=== PATIENT | male | born 1965 | race Caucasian/White ===

== ENCOUNTER 2023-09-03 22:52 | Inpatient (IN) | payer BC ==
[~2023-09-03] VITALS: Ht 182.9 cm; Wt 178.3 kg
[2023-09-04] VITALS (8 sets, daily range): BP systolic 134–155; BP diastolic 60–92; PULSE 46–89; RESP 15–24; TEMP 97.4–98.8; O2SAT 91–99
[2023-09-04] MEDS: ipratropium/albuterol 3ml nebule NEB ONE (00:11)
[2023-09-04] MEDS: hydrALAZINE 20mg/ml inj. IV ONE (00:11)
[2023-09-04] MEDS: methylPREDNISolone sod succ 125mg/2ml vial IV ONE (00:12)
[2023-09-04] MEDS: nitroGLYCERIN 1gm ointment UD TP ONE (00:12)
[2023-09-04 01:08] LABS: BASOPHILS # (AUTO) 0.1 X10'3 (0-0.2); BASOPHILS % (AUTO) 0.9 % (0-1); EOSINOPHILS # (AUTO) 0.2 X10'3 (0-0.9); EOSINOPHILS % (AUTO) 2.2 % (0-6); HEMATOCRIT 53.1 % (42.0-52.0); LYMPHOCYTES # (AUTO) 1.6 X10'3 (1.1-4.8); LYMPHOCYTES % (AUTO) 21.7 % (21-51); MEAN CORPUSCULAR HEMOGLOBIN 30.5 PG (27.0-31.0); MEAN CORPUSCULAR VOLUME 89.7 FL (78-98); MEAN PLATELET VOLUME 7.9 FL (7.4-10.4); MONOCYTES # (AUTO) 0.7 X10'3 (0-0.9); MONOCYTES % (AUTO) 8.6 % (2-12); NEUTROPHILS % (AUTO) 66.6 % (42-75); PLATELET COUNT 208 X10'3 (140-440); RED BLOOD COUNT 5.91 X10'6 (4.70-6.10); RED CELL DISTRIBUTION WIDTH 15.4 % (11.5-14.5); WHITE BLOOD COUNT 7.6 X10'3 (4.5-11.0)
[2023-09-04 01:28] LABS: ALBUMIN 3.8 G/DL (3.4-5.0); ANION GAP 9 (8-16); BLOOD UREA NITROGEN 15 MG/DL (7-18); BUN/CREATININE RATIO 16.9 (10.0-20.0); CALCIUM 8.4 MG/DL (8.5-10.1); CHLORIDE 102 MMOL/L (99-107); CREATININE 0.89 MG/DL (0.60-1.10); GLUCOSE 110 MG/DL (70-104); MAGNESIUM 1.9 MG/DL (1.5-2.4); POTASSIUM 3.9 MMOL/L (3.5-5.1); PRO BRAIN NATRIURETIC PEPTIDE 617 PG/ML (0-125); SODIUM 140 MMOL/L (135-145); TOTAL CARBON DIOXIDE 29.3 MMOL/L (24-32); eCRCL 98 ML/MIN; eGFR 87 ML/MIN
[2023-09-04 02:04] LABS: INR 3.2 INR; PROTHROMBIN TIME 31.6 SECONDS (9.0-12.0)
[2023-09-04] MEDS ORDERED: potassium Cl 40MEQ/1/2NS 520ml 520 ML IV PRN (03:50)
[2023-09-04] MEDS ORDERED: magnesium 2GM in 50ml NS 50 ML IV PRN (03:50)
[2023-09-04] MEDS ORDERED: magnesium hydroxide 30ml (MOM) UD suspension PO PRN (03:50)
[2023-09-04] MEDS ORDERED: ondansetron/PF 4mg/2ml inj IV PRN (03:50)
[2023-09-04] MEDS ORDERED: potassium Cl 20 mEq SR tablet PO PRN ×2 (03:50)
[2023-09-04] MEDS ORDERED: mag hydrox/Alum hydrox/simeth 30ml oral suspension PO PRN (03:50)
[2023-09-04] MEDS ORDERED: magnesium Cl slow-release 64mg tablet PO PRN (03:50)
[2023-09-04] MEDS ORDERED: magnesium 4gm in 100ml NS 100 ML IV PRN (03:50)
[2023-09-04] MEDS ORDERED: FURO20TA4 PO (07:20)
[2023-09-04 07:58] LABS: APTT 41 SECONDS (22-32)
[2023-09-04] MEDS: K and/or MAG REPLACEMENT MC SCH (08:00)
[2023-09-04] MEDS ORDERED: WARF-65 PO (08:17)
[2023-09-04] MEDS ORDERED: METF-1203 PO (08:17)
[2023-09-04] MEDS ORDERED: ATOR40TA72 PO (08:17)
[2023-09-04] MEDS ORDERED: WARF10TA45 PO (08:17)
[2023-09-04] MEDS ORDERED: TAMSULOSIN (08:17)
[2023-09-04] MEDS ORDERED: LEVO50TA8 PO (08:17)
[2023-09-04] MEDS ORDERED: POTA-206 (08:17)
[2023-09-04] MEDS ORDERED: TADA5TAB13 PO (08:17)
[2023-09-04] MEDS ORDERED: METO-395 PO (08:17)
[2023-09-04] MEDS: furosemide 10 MG/1 ML 10ml inj IV SCH (10:17)
[2023-09-04] MEDS: acetaminophen 325mg tablet PO PRN (10:18)
[2023-09-04] MEDS ORDERED: ASPI-1264 PO (11:00)
[2023-09-05 02:00] VITALS: BP 152/80; PULSE 78; RESP 18; TEMP 98.3; O2SAT 95
[2023-09-05 06:00] VITALS: BP 138/83; PULSE 57; RESP 18; TEMP 97.9; O2SAT 97
[2023-09-05 07:23] LABS: INR 2.3 INR; PROTHROMBIN TIME 23.3 SECONDS (9.0-12.0)
[2023-09-05 07:32] LABS: BASOPHILS % (AUTO) 0.2 % (0-1); EOSINOPHILS # (AUTO) 0.1 X10'3 (0-0.9); EOSINOPHILS % (AUTO) 0.6 % (0-6); HEMATOCRIT 55.6 % (42.0-52.0); LYMPHOCYTES # (AUTO) 1.3 X10'3 (1.1-4.8); MEAN CORPUSCULAR HEMOGLOBIN 30.1 PG (27.0-31.0); MEAN CORPUSCULAR HGB CONC 33.3 g/dL (33.0-36.5); MEAN CORPUSCULAR VOLUME 90.5 FL (78-98); MONOCYTES # (AUTO) 0.9 X10'3 (0-0.9); MONOCYTES % (AUTO) 7.5 % (2-12); NEUTROPHILS # (AUTO) 9.9 X10'3 (1.8-7.7); NEUTROPHILS % (AUTO) 80.7 % (42-75); PLATELET COUNT 252 X10'3 (140-440); RED BLOOD COUNT 6.14 X10'6 (4.70-6.10); RED CELL DISTRIBUTION WIDTH 15.5 % (11.5-14.5); WHITE BLOOD COUNT 12.2 X10'3 (4.5-11.0)
[2023-09-05 07:42] LABS: HEMOGLOBIN 18.5 g/dl (14.0-17.9)
[2023-09-05 07:43] LABS: ALANINE AMINOTRANSFERASE 35 U/L (12-78); ALBUMIN 3.9 G/DL (3.4-5.0); ALBUMIN/GLOBULIN RATIO 0.8 (1.1-1.5); ALKALINE PHOSPHATASE 85 IU/L (46-116); ANION GAP 8 (8-16); BILIRUBIN,TOTAL 1.1 MG/DL (0.1-1.0); BLOOD UREA NITROGEN 27 MG/DL (7-18); BUN/CREATININE RATIO 28.7 (10.0-20.0); CALCIUM 8.5 MG/DL (8.5-10.1); CHLORIDE 102 MMOL/L (99-107); CREATININE 0.94 MG/DL (0.60-1.10); GLUCOSE 134 MG/DL (70-104); SODIUM 139 MMOL/L (135-145); TOTAL PROTEIN 8.7 G/DL (6.4-8.2); eCRCL 93 ML/MIN; eGFR 82 ML/MIN
[2023-09-05 07:44] LABS: ASPARTATE AMINO TRANSFERASE 38 U/L (10-37); POTASSIUM 4.3 MMOL/L (3.5-5.1)
[2023-09-05 11:00] VITALS: BP 125/69; PULSE 76; RESP 16; TEMP 97.7; O2SAT 93
[2023-09-05] MEDS ORDERED: warfarin 7.5mg tablet PO ONE (21:00)
== END 2023-09-05 15:40 | disposition home or self-care (01) | DRG 291 ==
LOC: ER 22:54 → ED HOLD 09-04 03:56 → PCU 3S 09-04 05:45
PROVIDERS: ADMIT Orthopaedic Surgery Orthopaedic Surgery of the Spine; ATTEND Internal Medicine
DX: I11.0 Hypertensive heart disease with heart failure (principal); J96.01 Acute respiratory failure with hypoxia; Z68.43 Body mass index [BMI] 50.0-59.9, adult; I50.9 Heart failure, unspecified; I48.91 Unspecified atrial fibrillation; D75.1 Secondary polycythemia; E11.9 Type 2 diabetes mellitus without complications; E66.01 Morbid (severe) obesity due to excess calories; I16.0 Hypertensive urgency; T44.7X5A Adverse effect of beta-adrenoreceptor antagonists, initial encounter; Y92.89 Other specified places as the place of occurrence of the external cause; Z79.84 Long term (current) use of oral hypoglycemic drugs; E78.5 Hyperlipidemia, unspecified
CPT/HCPCS: 36415; 71045; 80048; 80053; 83605; 83735; 83880; 84484; 85025; 85379; 85610; 85730; 87040; 87081; 93005; 93306; 94640; 94760; 96374; 96375; 99291; A6213; G0378; J0360; J1940; J2930

== ENCOUNTER 2024-11-03 17:41 | Inpatient (IN) | payer BC ==
[~2024-11-03] VITALS: Ht 182.9 cm; Wt 185.0 kg
[~2024-11-03 17:41] MED LIST: ATOR40TA72 PO; FURO20TA4 PO; LEVO50TA8 PO; METF-1203 PO; POTA-206; TADA5TAB14 PO; WARF-65 PO; WARF10TA45 PO
[2024-11-03 17:43] VITALS: PULSE 80; RESP 33; O2SAT 98
--- NOTE | 2024-11-03 17:49 | ELECTROCARDIOGRAPH REPORT ---
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 Junior Brown Measurements Intervals [place] Rate: 70 P: 0 MA: 75 QRS: 85 QRSD: 108 T: 64 QT: 341 QTc: 368 Interpretive Statements A-V dual-paced complexes w/ some inhibition No further analysis attempted due to paced rhythm Electronically Signed On 11-03-2024 18:39:[address] Junior Brown Please click the below link to view image of tracing.
[2024-11-03 17:57] LABS: ABG BASE EXCESS 0.8 mmol/L (-2.0-3.0); ABG HCO3 27.6 mmol/L (21.0-28.0); ABG OXYGEN SATURATION 98.6 % (94.0-98.0); ABG PCO2 (T) 56.5 mmHg (35.0-48.0); ABG PH (T) 7.317 (7.350-7.450); ABG PO2 (T) 157.5 mmHg (83.0-108.0); ALLEN'S TEST POSITIVE; FCOHb 0.5 % (0.5-1.5); FHHb 1.4 % (0.0-5.0); FMetHb 0.3 % (0.0-1.5); FO2Hb 97.8 % (94.0-98.0); MODE BIPAP; PATIENT TEMPERATURE 39.3; TOTAL HEMOGLOBIN 17.8 G/dl (13.5-17.5)
--- NOTE | 2024-11-03 18:03 | Physician Documentation ---
History of Present Illness ~ Stated Complaint: SOB Time Seen by MD: 17:47 OK to notify your PCP?: Yes Mode of Arrival: EMS HPI 59-YEAR-OLD MALE PATIENT WAS BROUGHT TO THE EMERGENCY ROOM BY AMBULANCE FROM [place] BECAUSE OF SHORTNESS A BREATH. HE WAS DISCHARGED FROM [facility] YESTERDAY AND HE COULD NOT BREATHE SO HE CALLED 911. HE WAS BROUGHT TO THE EMERGENCY ROOM STRAIGHT FROM THERE. ON THE WAY HE WAS GIVEN 2 MG OF ATIVAN INTRAVENOUSLY BECAUSE HE WAS NOT TOLERATING THE MASK. HE HAS HISTORY OF CHF, STATUS POST BIVENTRICULAR PACEMAKER, ATRIAL FIBRILLATION, KRISTYN (OBSTRUCTIVE SLEEP APNEA), DIABETES MELLITUS AND HYPERTENSION. WE DO NOT KNOW THE REASON HE WAS ADMITTED TO [facility]. 194: Family report patient started not feeling well last night, and worsened today. During admission to [facility] patient was reportedly given azithromycin and Rocephin. He also had a CT of his chest during that visit which was "okay." Apparently COVID-19 and influenza tests were negative. 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 Medication Reconciliation Allergies: Coded Allergies: No Known Allergies (Unverified , 09/04/23) Scheduled Atorvastatin Calcium (Atorvastatin Calcium), 1 TAB PO HS, (Reported) Furosemide (Furosemide), 1 TAB PO QAM, (Reported) Levothyroxine Sodium (Levothyroxine Sodium), 1 TAB PO DAILY, (Reported) Tadalafil (Tadalafil), 1 TAB PO DAILY, (Reported) Warfarin Sodium (Warfarin Sodium), 1 TAB PO DAILY, (Reported) Warfarin Sodium (Warfarin Sodium), 1 TAB PO DAILY, (Reported) Miscellaneous Medications Metformin HCl (Metformin HCl), 1 TAB PO, (Reported) Potassium Chloride (K-Dur), (Reported) Past Medical History Past Medical History: Atrial Fibrillation, Congestive Heart Failure, High Cholesterol, Hypertension, Sleep Apnea, Diabetes, Cellulitis Past Surgical History: pacemaker Smoking Status: Never smoker (chews tobacco) Alcohol Use: Sober Drug Use: none Lives In: Home Review of Systems All Other Systems at this time: Reviewed and Negative ROS STATED ABOVE IN THE HPI, OTHERWISE ALL SYSTEMS ARE REVIEWED AND NEGATIVE. Physical Exam Vital Signs: RN Vital Signs have been reviewed: Yes, Heart Rate: 80, Respiratory Rate: 33, Pulse Oximetry: 98 Physical Exam REVIEWED VITAL SIGNS AND THEY ARE WELL WITHIN NORMAL RANGE BUT PATIENT IS NOT VERBALLY RESPONSIVE (PROBABLY FROM THE ATIVAN 2 MG INTRAVENOUSLY GIVEN BY THE EMS.) CONST: THE PATIENT IS MORE OR LESS OBTUNDED FROM ATIVAN HEAD: ATRAUMATIC EYES: NORMAL CONJUNCTIVA ENT: NORMAL EXTERNAL EARS, NOSE AND MOUTH. MOIST MUCOUS MEMBRANES NECK: FULL RANGE OF MOTION. NO MENINGISMUS RESP: CLEAR TO AUSCULTATION BILATERALLY. SLIGHTLY DIMINISHED BILATERALLY. MODERATELY INCREASED WORK OF BREATHING . CARDIO: REGULAR RATE AND RHYTHM, NO MURMURS. SKIN WELL PERFUSED ABD: SOFT, NON-TENDER, NON-DISTENDED. NORMAL BOWEL SOUNDS. NO REBOUND OR GUARDING SKIN: NO PETECHIAE OR RASHES. WARM AND DRY BACK: NO MIDLINE OR FLANK TENDERNESS EXT: NO CYANOSIS, OR EDEMA NEURO: AWAKE AND ALERT PSYCH: NORMAL MOOD AND AFFECT Progress Progress Note 1924: Case discussed with teleintensivist, who believes patient is appropriate for admission to the hospitalist. 1944: Hospitalist paged. 2004: Case discussed with Dr. Frias, internal medicine resident, who agrees to evaluate for admission. Results/Orders Results/Orders Orders - BLAISE HANKINS MD Abg (Arterial Blood Gas) (11/03/24 ) Culture Blood (11/03/24 17:42) Chest,Single View (11/03/24 17:55) Monitor (11/03/24 17:42) Saline Lock (11/03/24 17:42) Oxygen (11/03/24 17:42) Electrocardiogram (11/03/24 17:42) Completed Orders - BLAISE HANKINS MD Cbc/Diff (11/03/24 17:42) Chest,Single View (11/03/24 17:55) Procalcitonin (11/03/24 17:42) BMP (11/03/24 17:42) Lacticsepsis (11/03/24 17:42) PBNP (11/03/24 17:42) Electrocardiogram (11/03/24 17:42) Hs Troponin I W Calculations (11/03/24 17:42) Hs Troponin I W Calculations (11/03/24 19:42) Hs Troponin I W Calculations (11/03/24 20:42) Ceftriaxone 2gm/D5w 50ml Bag (Rocephin 2 (11/03/24 17:55) Acetaminophen 1,000mg/100ml Iv (Ofirmev (11/03/24 17:55) Magnesium Sulf-Water 2g/50ml (Magnesium (11/03/24 17:55) Ua W/Microscopic, Cult If Ind (11/03/24 19:00) Hgb A1c (11/03/24 17:50) Vital Signs 11/03/24 11/03/24 11/03/24 11/03/24 17:41 17:43 18:10 18:13 Temp 102.8 Pulse 83 80 77 Resp 24 35 32 35 33 B/P (MAP) 130/93 126/62 (83) Pulse Ox 97 98 98 FiO2 100 100 11/03/24 11/03/24 11/03/24 11/03/24 18:30 18:37 18:37 18:56 Pulse 88 Resp 32 35 B/P (MAP) 93/65 (74) Pulse Ox 99 98 98 O2 Delivery BiPAP+ FiO2 100 90 11/03/24 11/03/24 11/03/24 19:00 19:05 20:04 Pulse 83 81 Resp 29 22 B/P (MAP) 119/71 (87) 113/66 (82) Pulse Ox 98 98 98 FiO2 80 70 Laboratory Tests Test 11/03/24 17:50 11/03/24 17:54 11/03/24 19:00 11/03/24 19:50 White Blood Count 10.3 Red Blood Count 5.71 Hemoglobin 16.8 Hematocrit 50.1 Mean Corpuscular Volume 87.8 Mean Corpuscular Hemoglobin 29.4 Mean Corpuscular Hemoglobin Concent 33.5 Red Cell Distribution Width 15.3 H Platelet Count 140 Mean Platelet Volume 7.5 Neutrophils (%) (Auto) 91.6 H Lymphocytes (%) (Auto) 2.8 L Monocytes (%) (Auto) 5.4 Eosinophils (%) (Auto) 0 Basophils (%) (Auto) 0.2 Neutrophils # (Auto) 9.4 H Lymphocytes # (Auto) 0.3 L Monocytes # (Auto) 0.6 Eosinophils # (Auto) 0.0 Basophils # (Auto) 0.0 CBC Comment Sodium Level 132 L Potassium Level 4.9 Chloride Level 101 Carbon Dioxide Level 26.2 Anion Gap 5 L Blood Urea Nitrogen 26 H Creatinine 1.20 H Estimated GFR/1.73 m2 62 BUN/Creatinine Ratio 21.7 H Glucose Level 160 H Hemoglobin A1c 7.5 H Lactic Acid Level 1.8 1.3 Calcium Level 8.0 L Troponin I High Sensitivity 48 54 Pro-B-Type Natriuretic Peptide 1545 H Albumin 3.1 L Procalcitonin 9.07 H Chemistry Comments Blood Gas Specimen Type Arterial Blood Gas Puncture Site Rr O2 Saturation 98.6 H Arterial Blood pH (Temp corrected) 7.317 L Arterial Blood pCO2 (Temp correct) 56.5 H Arterial Blood pO2 (Temp corrected) 157.5 H Arterial Blood PO2/FiO2 Ratio 1.43 Arterial Blood HCO3 27.6 Arterial Blood Base Excess 0.8 Arterial Blood Oxyhemoglobin 97.8 Arterial Blood Carboxyhemoglobin 0.5 Arterial Blood Methemoglobin 0.3 Arterial Blood Deoxyhemoglobin 1.4 Lucius Test Positive Blood Gas Hemoglobin 17.8 H Blood Gas Temperature 39.3 Blood Gas Modality Bipap FiO2 100.0 Urine Specimen Description Other Urine Color Yellow Urine Clarity Cloudy Urine pH 5.5 Urine Specific [place] 1.020 Urine Protein 30 H Urine Glucose (UA) Negative Urine Ketones Negative Urine Occult Blood Large H Urine Nitrite Negative Urine Bilirubin Negative Urine Urobilinogen 0.2 Urine Leukocyte Esterase Negative Urine RBC 50-100 Urine WBC None seen Urine Squamous Epithelial Cells Few Urine Bacteria Few Urine Mucus Few Urine Culture Indicated Not ind Volume Urine Centrifuged 10 ml Urine Comment Prothrombin Time 19.3 H INR International Normalized Ratio 2.0 Activated Partial Thromboplast Time 38 H Coagulation Comments Troponin I High Sens Percent Delta 12 Troponin I Hi Sens Absolute Change 6 Microbiology Date/Time Source Procedure Growth Status 11/03/24 18:08 Blood Hand Right Blood Culture - Preliminary NEGATIVE (LESS THAN 24 HOURS) Resulted EKG/XRAY/CT/US/VASC/MRI EKG : Additional Comment Test Date: 2024-11-03 Test Time: 17:46:13 Pat Name: RENUKA DAVILA Department: EMERGENCY ROOM Room: 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 Junior Brown Measurements Intervals [place] Rate: 70 P: 0 [place]: 75 QRS: 85 QRSD: 108 T: 64 QT: 341 QTc: 368 Interpretive Statements A-V dual-paced complexes w/ some inhibition No further analysis attempted due to paced rhythm Electronically Signed On 11-03-2024 18:39:[address] Junior Brown (interpreted by me) Chest X-Ray : Interpreted By: radiologist Views: 1 VIEW Additional Comments EXAM: DI CHEST,SINGLE VIEW CLINICAL HISTORY: SEPSIS WORKUP TECHNIQUE: Single AP view of the chest WID: COMPARISON: DI CHEST,SINGLE VIEW on DOS: 09/04/23 FINDINGS: Lines and tubes: There is a left-sided dual lead pacemaker with lead tips projecting over the right atrium in the right ventricle. Chest: Cardiomegaly and mild pulmonary vascular congestion. Small bilateral pleural effusions and mixed bibasilar opacities. No pneumothorax. The osseous structures are grossly intact. Multilevel thoracic spondylosis. IMPRESSION: 1. Mild cardiomegaly and mild pulmonary vascular congestion. 2. Small bilateral pleural effusions and mild bibasilar mixed opacities likely atelectasis although pneumonia could contribute to this appearance. Reviewed by Dr. Brown. Medical Decision Making Findings PATIENT CAME TO THE EMERGENCY ROOM AND HE IS MORBIDLY OBESE AND WE HAVE TO POSITION HIM WITH DIFFICULTIES AND PUT HIM ON BIPAP AND HIT OXYGENATION IMPROVED. LABS ORDERED AND AFTER THE BLOOD CULTURE HE WAS GIVEN 2 G OF ROCEPHIN INTRAVENOUSLY TOGETHER WITH MAGNESIUM 2 G INTRAVENOUSLY. ABG WAS DONE AND FIO2 100%: PH 7.317/PO2 157.5/PCO2 56.5/BICARB 27.6/O2 SAT 98.6%. LAB PENDING AND HIS EKG DONE AT 17:46 HOURS SHOWS ABG WERE PACED COMPLEX WITH SOME INHIBITION. HEART RATE IS 70. Patient needs to be admitted to the hospital for acute hypoxic and hypercarbic respiratory failure most probably secondary to CHF and COPD. Critical Care Time: [55] minutes Treatments/Evaluations: Close monitoring and treatment of unstable vital signs, cardiorespiratory, and neurologic status, while maintaining tight balance of fluid, respiratory, and cardiac interventions. This time includes discussing the case with the patient and the patient's family. This time does not include all procedures stated elsewhere in this record. This time also includes reviewing old records, labs and radiological studies. This time includes examining and re- examining the patient. Additionally, this time also includes arranging care with admitting and consulting physicians. DISCLAIMER Inadvertent spelling and grammatical errors,inadvertent low pressure boiler operator errors,syntax errors, grammatical errors, and spelling errors are likely due to EMR/dictation software use and do not reflect on the overall quality of patient care. Note that the electronic time recorded on this note does not necessarily reflect the actual time of the patient encounter. Departure Time of Disposition: 19:45 Disposition: 09 ADMITTED INPATIENT Admitted to Inpatient Unit: yes, to hospitalist Impression: Primary Impression: Acute hypoxic respiratory failure Additional Impressions: CHF exacerbation Qualified Codes: I50.9 - Heart failure, unspecified Acute pneumonitis JEFF (acute kidney injury) Condition: Guarded Referrals: NO PRIMARY CARE PROVIDER (PCP) Critical Care Note Total Time (mins): 60 Critical Care Note Critical Care Time: 60 minutes Treatments/Evaluations: Close monitoring and treatment of unstable vital signs, cardiorespiratory, and neurologic status, while maintaining tight balance of fluid, respiratory, and cardiac interventions. This time includes discussing the case with the patient and the patient's family. This time does not include all procedures stated elsewhere in this record. This time also includes reviewing old records, labs and radiological studies. This time includes examining and re- examining the patient. Additionally, this time also includes arranging care with admitting and consulting physicians. Signature Scribe Signature: Scribed for Junior Brown MD by Ramona Sam . 11/03/24 19:41 Attestation: BLAISE DAO MD November 03, 2024 18:03 RAMONA RG November 03, 2024 19:47
--- NOTE | 2024-11-03 18:12 | RADIOLOGY REPORT ---
EXAM: DI CHEST,SINGLE VIEW CLINICAL HISTORY: SEPSIS WORKUP TECHNIQUE: Single AP view of the chest WID: COMPARISON: DI CHEST,SINGLE VIEW on DOS: 09/04/23 FINDINGS: Lines and tubes: There is a left-sided dual lead pacemaker with lead tips projecting over the right a trium in the right ventricle. Chest: Cardiomegaly and mild pulmonary vascular congestion. Small bilateral pleural effusions and mixed bibasilar opacities. No pneumothorax. The osseous structures are grossly intact. Multilevel thoracic spondylosis. IMPRESSION: 1. Mild cardiomegaly and mild pulmonary vascular congestion. 2. Small bilateral pleural effusions and mild bibasilar mixed opacities likely atelectasis although p neumonia could contribute to this appearance.
[2024-11-03 18:18] LABS: BASOPHILS % (AUTO) 0.2 % (0-1); EOSINOPHILS % (AUTO) 0 % (0-6); HEMATOCRIT 50.1 % (42.0-52.0); HEMOGLOBIN 16.8 g/dl (14.0-17.9); LYMPHOCYTES # (AUTO) 0.3 X10'3 (1.1-4.8); LYMPHOCYTES % (AUTO) 2.8 % (21-51); MEAN CORPUSCULAR HEMOGLOBIN 29.4 PG (27.0-31.0); MEAN CORPUSCULAR HGB CONC 33.5 g/dL (33.0-36.5); MEAN CORPUSCULAR VOLUME 87.8 FL (78-98); MEAN PLATELET VOLUME 7.5 FL (7.4-10.4); MONOCYTES # (AUTO) 0.6 X10'3 (0-0.9); MONOCYTES % (AUTO) 5.4 % (2-12); NEUTROPHILS # (AUTO) 9.4 X10'3 (1.8-7.7); NEUTROPHILS % (AUTO) 91.6 % (42-75); PLATELET COUNT 140 X10'3 (140-440); RED BLOOD COUNT 5.71 X10'6 (4.70-6.10); RED CELL DISTRIBUTION WIDTH 15.3 % (11.5-14.5); WHITE BLOOD COUNT 10.3 X10'3 (4.5-11.0)
[2024-11-03] MEDS: CefTRIAXone 2gm/D5W 50ml BAG 50 ML IV ONE (18:34)
[2024-11-03] MEDS: acetaminophen 1,000mg/100ml IV 100 ML IV ONE (18:35)
[2024-11-03 18:49] LABS: ALBUMIN 3.1 G/DL (3.4-5.0); ANION GAP 5 (8-16); BLOOD UREA NITROGEN 26 MG/DL (7-18); BUN/CREATININE RATIO 21.7 (10.0-20.0); CHLORIDE 101 MMOL/L (99-107); GLUCOSE 160 MG/DL (70-104); POTASSIUM 4.9 MMOL/L (3.5-5.1); PRO BRAIN NATRIURETIC PEPTIDE 1545 PG/ML (0-125); SODIUM 132 MMOL/L (135-145); TOTAL CARBON DIOXIDE 26.2 MMOL/L (24-32); eCRCL 72 ML/MIN; eGFR 62 ML/MIN
[2024-11-03 18:56] VITALS: O2SAT 98
[2024-11-03 19:00] VITALS: O2SAT 98
[2024-11-03] MEDS: magnesium sulf-water 2g/50mL 50 ML IV ONE (19:04)
[2024-11-03 19:28] LABS: BILIRUBIN,URINE NEGATIVE (Neg); CLARITY,URINE CLOUDY (Clear); COLOR,URINE YELLOW (Yellow); GLUCOSE, URINE NEGATIVE (Neg); KETONES,URINE NEGATIVE (Neg); LEUKOCYTE ESTERASE ,URINE NEGATIVE (Neg); NITRITES, URINE NEGATIVE (Neg); OCCULT BLOOD,URINE LARGE (Neg); PH,URINE 5.5 (4.8-8.0); PROTEIN,URINE 30 mg/dl (Neg); UROBILINOGEN,URINE 0.2 E.U/dL (0.2-1.0)
[2024-11-03 19:33] LABS: UA COLLECTION TYPE OTHER
[2024-11-03 19:34] LABS: WBC,URINE NONE SEEN /HPF (0-4)
[2024-11-03 19:35] LABS: BACTERIA,URINE FEW /HPF (Neg); MUCUS STRANDS FEW /LPF (Neg); RBC,URINE 50-100 /HPF (0-2); SQUAMOUS EPITHELIAL CELL,UR FEW /LPF (FEW)
[2024-11-03] MEDS ORDERED: potassium Cl 40MEQ/1/2NS 520ml 520 ML IV PRN (20:05)
[2024-11-03] MEDS ORDERED: mag hydrox/Alum hydrox/simeth 30ml oral suspension PO PRN (20:05)
[2024-11-03] MEDS ORDERED: acetaminophen 325mg tablet PO PRN (20:05)
[2024-11-03] MEDS ORDERED: magnesium hydroxide 30ml (MOM) UD suspension PO PRN (20:05)
[2024-11-03] MEDS ORDERED: magnesium sulf-water 4G/100mL 100 ML IV PRN (20:05)
[2024-11-03] MEDS ORDERED: magnesium Cl slow-release 64mg tablet PO PRN (20:05)
[2024-11-03] MEDS ORDERED: potassium Cl 20 mEq SR tablet PO PRN ×2 (20:05)
[2024-11-03] MEDS ORDERED: ondansetron/PF 4mg/2ml inj IV PRN (20:05)
[2024-11-03] MEDS ORDERED: magnesium sulf-water 2g/50mL 50 ML IV PRN (20:05)
[2024-11-03] MEDS ORDERED: morphine 2 MG/ML inj. syringe IV PRN ×2 (20:05)
[2024-11-03 20:09] LABS: APTT 38 SECONDS (22-32); PROTHROMBIN TIME 19.3 SECONDS (9.0-12.0)
[2024-11-03] MEDS: methylPREDNISolone sod succ/PF 40mg inj. IV ONE (20:57)
[2024-11-03] MEDS: furosemide 10 MG/1 ML 10ml inj IV ONE (20:57)
[2024-11-03] MEDS: azithromycin/NS 500mg/250ml 250 ML IV ONE (20:58)
--- NOTE | 2024-11-03 22:15 | HISTORY AND PHYSICAL-Residence ---
History & Physical Providers to CC Resident Creating Document: CHIVO ROJAS CC: CIRILO PALOMO MD ~ History of Present Illness Reason for Admit\Complaint: Shortness of breath History of Present Illness Patient is a 59-year-old male with past medical history of CHF, atrial fibrillation, hemochromatosis, type 2 diabetes, hypertension, hypothyroidism and hyperlipidemia who came to the ED transferred from [place] due to shortness of breath. Patient was difficult to arouse and not answering questions, medical history obtained from . She reports that for 1 week patient has been experiencing increasing shortness of breath, worse at night, with the orthopnea and PND, as well as generalized weakness and malaise. She states that yesterday he presented with nasal congestion, increasing confusion, worsening shortness of breath with decreased oxygen saturation which was measured at home at 87%, fever and chills. Patient was taken to [facility] where after giving IV Lasix and IV antibiotics patient was sent to our facility for further management. Of note, family reports that patient has been at [facility] twice in the last month due to CHF exacerbation symptoms. Allergies: Coded Allergies: No Known Allergies (Unverified , 09/04/23) Home Medications Home Medications Active Reported K-Dur (Potassium Chloride) 10 Meq Tab.prt.sr Metformin HCl 500 Mg Tablet 1 Tab PO Atorvastatin Calcium 40 Mg Tablet 1 Tab PO HS Warfarin Sodium 10 Mg Tablet 1 Tab PO DAILY Warfarin Sodium 2 Mg Tablet 1 Tab PO DAILY Levothyroxine Sodium 50 Mcg Tablet 1 Tab PO DAILY Tadalafil 5 Mg Tablet 1 Tab PO DAILY Furosemide 20 Mg Tablet 1 Tab PO QAM Past Medical History Past Medical History CHF Atrial fibrillation Hemochromatosis Type 2 diabetes Hypertension Hypothyroidism Hyperlipidemia Past Surgical History Surgical History Comment Pacemaker 1 year ago Family History Family History: FH: type 2 diabetes MOTHER Past Social History Smoking: Chew (Tobacco) Alcohol Use: Sober Drug Use: None Lives with: Spouse Lives In: Home Occupation: employed ROS ROS All systems were reviewed except for pertinent positives mentioned in HPI Exam Vitals: Vital Signs Date Time Temp Pulse Resp B/P (MAP) Pulse Ox O2 Delivery O2 Flow Rate FiO2 11/03/24 21:00 69 22 136/59 (84) 97 50 11/03/24 17:41 102.8 General: General: Morbidly obese male, drowsy, open eyes and falls back asleep, not following commands HEENT: BiPAP in place. No pallor present, no icterus, moist mucous membranes Neck: No masses and tenderness Resp: Bilateral basal crackles and faint wheezes. No rhonchi Heart: Irregular Rate and rhythm, variable S1 and S2 without murmur, rub or gallop Abdomen: Soft and non tender no organomegaly, no guarding and rigidity, bowel sounds present Neuro: Drowsy, unable to follow commands Extremities: No cyanosis,clubbing or edema Skin: Warm and Dry. No lesions Diagnostic Data Last Recorded Lab Results: 11/03/24 17511/03/24 175 Diagnostic Data: Laboratory Tests Test 11/03/24 19:50 Prothrombin Time 19.3 SECONDS (9.0-12.0) H INR International Normalized Ratio 2.0 INR Activated Partial Thromboplast Time 38 SECONDS (22-32) H Coagulation Comments Advance Care Planning Advanced Care plannin - 30 Minutes Additional Plan atient is a 59-year-old male with past medical history of CHF, atrial fibrillation, hemochromatosis, type 2 diabetes, hypertension, hypothyroidism and hyperlipidemia who came to the ED transferred from [place] due to shortness of breath. Admitted for evaluation and management of acute hypoxic respiratory failure, sepsis secondary to community acquired pneumonia and CHF exacerbation. Acute hypoxic respiratory failure Sepsis 2/2 community-acquired pneumonia Acute on Chronic HFpEF Respiratory acidosis Small bilateral pleural effusions JEFF, likely prerenal secondary to vasomotor nephropathy Patient is currently on BiPAP with FiO2 of 70%, saturating 96% Blood pressure stable ABG shows: PH 7.317, pCO2 56.5, PO2 157.5, HC03 27.6 WBC 10.3, neutrophilia of 91.6%, Procalcitonin: 9, Lactic acid 1.8, awaiting repeat ProBNP 1545 Creatinine 1.2 Chest x-ray shows: Mild cardiomegaly and mild pulmonary vascular congestion. Small bilateral pleural effusions and mild bibasilar mixed opacities likely atelectasis although pneumonia could contribute to this appearance. Started on Rocephin IV 2 g daily and azithromycin IV daily Single dose of Lasix 60 mg IV given. Will do single dose for now in view of sepsis, but also we will avoid IV fluids at this time in view of CHF Strict I's and O's Per family patient is currently not on TARAH, Arb or ARNI Recently started on amlodipine. Pending med rec Pending echocardiogram Will consider upgrade to ICU if patient deteriorates Patient discussed in detail with Dr. Edouard Palomo Atrial fibrillation, rate controlled Hypertension Hyperlipidemia History of Hemochromatosis Obstructive sleep apnea On Coumadin. INR is 2.0 Hb: 16.8 Continue atorvastatin. Pending med rec Iron studies ordered Patient not on CPAP at home, family is working on getting him one Type 2 diabetes According to family last A1c was below 7 We will obtain new A1c Hold metformin Start Lantus 15 units, lispro 3 units, low-dose supplemental Hypothyroidism Continue levothyroxine. Pending med rec Code Status: Full code DVT prophylaxis: Warfarin Nutrition: Carb controlled PT: Ordered Prognosis: Guarded Disposition: Admit to PCU with tele monitoring. Continue medical management Chivo Frias MD Internal Medicine Resident PGY-1 Date of Service: November 03, 2024 Billing Provider: CHIVO ROJAS LEONARDO LUIS November 03, 2024 22:15
[2024-11-03] MEDS ORDERED: glucagon, human recombinant 1mg kit SUBCUT PRN (22:55)
[2024-11-03] MEDS ORDERED: dextrose 50%-water 50ml dispensing syringe IV PRN ×2 (22:55)
[2024-11-03] MEDS ORDERED: DEXTROSE 15 GM of carb/4 tabs (each vial/BOTTLE has 4 tablets) PO PRN ×2 (22:55)
[2024-11-03 23:09] VITALS: PULSE 73; RESP 23; O2SAT 94
[2024-11-03 23:25] LABS: HEMOGLOBIN A1C 7.5 % (4.5-6.2)
[2024-11-04] VITALS (13 sets, daily range): BP systolic 113–139; BP diastolic 63–92; PULSE 57–86; RESP 13–24; TEMP 97–99.3; O2SAT 90–95
[2024-11-04 05:42] LABS: BASOPHILS % (AUTO) 0.1 % (0-1); EOSINOPHILS % (AUTO) 0 % (0-6); HEMATOCRIT 48.3 % (42.0-52.0); HEMOGLOBIN 16.3 g/dl (14.0-17.9); LYMPHOCYTES # (AUTO) 0.5 X10'3 (1.1-4.8); LYMPHOCYTES % (AUTO) 5.3 % (21-51); MEAN CORPUSCULAR HEMOGLOBIN 29.6 PG (27.0-31.0); MEAN CORPUSCULAR HGB CONC 33.7 g/dL (33.0-36.5); MEAN CORPUSCULAR VOLUME 87.9 FL (78-98); MEAN PLATELET VOLUME 7.7 FL (7.4-10.4); MONOCYTES # (AUTO) 0.1 X10'3 (0-0.9); MONOCYTES % (AUTO) 1.7 % (2-12); NEUTROPHILS # (AUTO) 8.1 X10'3 (1.8-7.7); NEUTROPHILS % (AUTO) 92.9 % (42-75); PLATELET COUNT 140 X10'3 (140-440); RED CELL DISTRIBUTION WIDTH 15.2 % (11.5-14.5); WHITE BLOOD COUNT 8.7 X10'3 (4.5-11.0)
[2024-11-04 06:07] LABS: ALANINE AMINOTRANSFERASE 43 U/L (12-78); ALBUMIN 3.1 G/DL (3.4-5.0); ALBUMIN/GLOBULIN RATIO 0.7 (1.1-1.5); ALKALINE PHOSPHATASE 69 IU/L (46-116); ANION GAP 7 (8-16); ASPARTATE AMINO TRANSFERASE 35 U/L (10-37); BILIRUBIN,TOTAL 0.9 MG/DL (0.1-1.0); BLOOD UREA NITROGEN 30 MG/DL (7-18); BUN/CREATININE RATIO 27.3 (10.0-20.0); CALCIUM 8.1 MG/DL (8.5-10.1); CHLORIDE 99 MMOL/L (99-107); GLUCOSE 200 MG/DL (70-104); MAGNESIUM 2.7 MG/DL (1.5-2.4); SODIUM 133 MMOL/L (135-145); TOTAL CARBON DIOXIDE 26.8 MMOL/L (24-32); TOTAL PROTEIN 7.3 G/DL (6.4-8.2); eCRCL 78 ML/MIN; eGFR 68 ML/MIN
[2024-11-04 06:31] LABS: FERRITIN 250 NG/ML (26-388)
[2024-11-04 07:37] LABS: % IRON SATURATION 9 % (11-46); IRON 31 UG/DL (53-167); TOTAL IRON BINDING CAPACITY 358 UG/DL (259-388)
[2024-11-04] MEDS: docusate sod 100mg capsule PO SCH (07:43)
[2024-11-04] MEDS: K and/or MAG REPLACEMENT MC SCH (08:00)
[2024-11-04] MEDS ORDERED: heparin, porcine 5000 units/ml vial SQ SCH (08:00)
[2024-11-04] MEDS: INSULIN LISPRO 100 UNIT/ML INSULN.PEN MULTI-DOSE SQ SCH ×2 (08:35→08:36)
[2024-11-04] MEDS ORDERED: AMLO5TAB5 PO (10:35)
--- NOTE | 2024-11-04 11:52 | PROGRESS NOTE ---
Daily Progress Note Providers to CC ~ no new complaint today, resting comfortably in the bed Central Line/PICC still needed: No Alonzo-Non Protocol Alonzo Indications Met/Not Met: F/C Indications Not Met Antibiotic Timeout Antibiotic Ordered?: Yes MRSA Education MRSA Education Provided to pt: Yes Subjective As above Objective Vital Signs Date Time Temp Pulse Resp B/P (MAP) Pulse Ox O2 Delivery O2 Flow Rate FiO2 11/04/24 08:30 17 91 Nasal Cannula 3.0 28 11/04/24 07:32 97.3 71 129/76 (93) Vital signs, stable ,afebrile. Pulse Oximetry reflects adequate oxygenation on 3 L oxygen nasal cannula General: well developed, well nourished. Awake , alert, and oriented x4, resting comfortably in the bed, in no acute distress . Skin: Warm, dry, no pallor, no rash or petechiae. HEENT: Atraumatic, normocephalic, EOMI, anicteric sclera B; pink conjunctiva; PERRLA, normal oropharynx, moist oral and nasal mucosa. Tympanic membrane , nose , throat clear. Neck: Trachea midline. Supple, full range of motion, no JVD, bruit , hepatojugular reflex , lymphadenopathy or masses, or other lesions Cardiac: Regular rhythm, regular rate no murmurs, rubs, or gallops. Normal S1 and S2, no S3 noticed. PMI is normal. Respiratory: Equal breath sounds bilaterally, no tachypnea; lungs clear to auscultation bilaterally, no wheezing ,rub or rales, or crackles. Chest wall is symmetric and without deformity. No signs of trauma. Chest wall is nontender. No signs of respiratory distress. Resonance is normal upon percussion bilaterally. Gastrointestinal: Abdomen symmetric, non-distended, soft, non-tender, normal bowel sounds x4 quadrant, normoactive, no hepatosplenomegaly , no masses , no bruit, no flank pain bilaterally. No voluntary guarding, rebound, or rigidity. No tenderness to percussion. No pulsatile masses. Equal femoral pulses. No Sotelo's sign or McBurney point tenderness. Back; no CVA tenderness bilaterally, no deformities. Neck and back are without deformity as well. No tenderness noted on palpation of the spinous processes. Spinous processes are midline. Cervical, thoracic, and lumbar paraspinal muscles are not tender and are without spasm. : normal external genitalia, without lesions, swelling, masses or tenderness. Musculoskeletal: Extremities, normal range of motion, non-tender, muscle strength 5/5 x 4. Negative Homans signs bilaterally on lower extremity. Distal pulses full symmetrical, no clubbing, cyanosis , edema. Neurological: Speech is clear, alert, and oriented x 4. No motor or sensory deficit, deep tendon reflexes normal, cerebellar intact. Cranial nerves II-XII intact. Psych: Alert and or appropriate, normal affect. Vascular: Good distal pulses, which are equal x4; capillary refill less than 2 seconds. Lymphatic, no lymphadenopathy. Result Diagram: 11/04/24 0506 11/04/24 0506 Coagulation Studies Laboratory Tests Test 11/03/24 19:50 Prothrombin Time 19.3 SECONDS (9.0-12.0) H INR International Normalized Ratio 2.0 INR Activated Partial Thromboplast Time 38 SECONDS (22-32) H Coagulation Comments Problem\Assessment\Plan Assessment/ Plan 59-year-old male with past medical history of CHF, atrial fibrillation, hemochromatosis, type 2 diabetes, hypertension, hypothyroidism and hyperlipidemia who came to the ED transferred from [place] due to shortness of breath. Admitted for evaluation and management of acute hypoxic respiratory failure, sepsis secondary to community acquired pneumonia and CHF exacerbation. Sepsis, positive blood culture, for Staph, started on IV vancomycin Acute hypoxic respiratory failure Sepsis 2/2 community-acquired pneumonia Acute on Chronic HFpEF Respiratory acidosis Small bilateral pleural effusions JEFF, likely prerenal secondary to vasomotor nephropathy Patient is currently on BiPAP with FiO2 of 70%, saturating 96% Blood pressure stable ABG shows: PH 7.317, pCO2 56.5, PO2 157.5, HC03 27.6 WBC 10.3, neutrophilia of 91.6%, Procalcitonin: 9, Lactic acid 1.8, awaiting repeat ProBNP 1545 Creatinine 1.2 Chest x-ray shows: Mild cardiomegaly and mild pulmonary vascular congestion. Small bilateral pleural effusions and mild bibasilar mixed opacities likely atelectasis although pneumonia could contribute to this appearance. Started on Rocephin IV 2 g daily and azithromycin IV daily Single dose of Lasix 60 mg IV given. Will do single dose for now in view of sepsis, but also we will avoid IV fluids at this time in view of CHF Strict I's and O's Per family patient is currently not on TARAH, Arb or ARNI Recently started on amlodipine. Pending med rec Pending echocardiogram Will consider upgrade to ICU if patient deteriorates Patient discussed in detail with Dr. Edouard Kan Atrial fibrillation, rate controlled Hypertension Hyperlipidemia History of Hemochromatosis Obstructive sleep apnea On Coumadin. INR is 2.0 Hb: 16.8 Continue atorvastatin. Pending med rec Iron studies ordered Patient not on CPAP at home, family is working on getting him one Type 2 diabetes According to family last A1c was below 7 We will obtain new A1c Hold metformin Start Lantus 15 units, lispro 3 units, low-dose supplemental Hypothyroidism Continue levothyroxine. Pending med rec Code Status: Full code DVT prophylaxis: Warfarin Nutrition: Carb controlled PT: Ordered Prognosis: Guarded Sepsis Screening Reassessment Date: November 04, 2024 Date of Service: November 04, 2024 Billing Provider: SVETLANA KIM MD Common Visit Codes: [id number] INP/OBS CARE(HIGH) SVETLANA KIM MD November 04, 2024 11:52
--- NOTE | 2024-11-04 14:53 | CARDIOLOGY REPORT ---
APPROVED REPORT EXAM: Comprehensive 2D, Doppler, and color-flow Echocardiogram. Patient Location: [address] Blood Pressure: 129/76 mmHg Heart Rate: 67-90 bpm Rhythm: Atrial Fibrillation Indications Abnormal EKG Pneumonia Sepsis Shortness of Breath Congestive Heart Failure Hx of Atrial Fibrillation Diabetes Mellilt II Marketing Pr Intern: Kyrie Timmons MD Previous echo: 09/26/2023 [facility] EF:55-60% mod/sev RV, mod LA 2D Dimensions RVDd 4.5 cm LA Diam5.0 cm Aortic Root(2D) 3.5 cm LVOT Diameter 2.39 (1.8-2.4cm) IVC 35.95 mmCO 3.7 L/min M-Mode Dimensions RVDd 3.42 (2.1-3.2cm) Left Atrium(MM) 4.74 (2.5-4.0cm) IVSd 1.63 (0.7-1.1cm) LVDd 4.12 (4.0-5.6cm) Aortic Root 3.60 (2.2-3.7cm) PWd 1.63 (0.7-1.1cm) Aortic Cusp Exc 2.43 (1.5-2.0cm) IVSs 1.78 cm MV EPSS 1.1 (<0.5cm) LVDs 2.73 (2.0-3.8cm) FS (%) 34 % PWs 1.86 cm ESV(Teich) 27.9 ml LVEF(%) 63 (>50%) Aortic Valve AoV Peak Michael. 162.3 cm/s AoV VTI 27.5 cm AO Peak GR. 10.5 mmHg AO Mean GR. 5 mmHg LVOT VTI 22.83 cm LVOT Peak Michael. 115.9 cm/s RICARDA(VTI)/BSA 3.71 cm2/m2 RICARDA (VTI) 3.71 cm2 Mitral Valve MV Peak Gr. 5 mmHg MV Mean Gr. 1 mmHg MV PHT 56 ms MVA (PHT) 3.93 cm2 MV OIzd376.3 cm/sMV VMean49.4 cm/s MVA VTI3.44 cm2MV VTI29.6 cm Pulmonary Valve RVOT VTI 17.5 cm Tricuspid Valve TR P. Velocity 295 cm/s RAP ESTIMATE 15 mmHg TR Peak Gr. 35 mmHg RVSP 50 mmHg LEFT VENTRICLE Normal LV size and function. Mild concentric hypertrophy. Overall LVEF is 55-60%. RIGHT VENTRICLE Right ventricle is moderate to severely dilated with mildly reduced function. Estimated PA systolic p ressure 50 mmHg. Pacemaker wire in right heart. ATRIA Left atrium is moderately dilated. Right atrium appears to be dilated. AORTIC VALVE Trileaflet AV appears sclerotic without stenosis or insufficiency. MITRAL VALVE Mild MV annular calcification without stenosis. Mild regurgitation. TRICUSPID VALVE TV appears structurally normal with mild regurgitation. PULMONIC VALVE Grossly normal PV without stenosis, physiologic insufficiency. GREAT VESSELS The aortic root is normal in size. IVC is dilated and collapses less than 50% with inspiration. PERICARDIUM Normal pericardium. No pericardial effusion seen. Conclusion Normal LV size and function. Mild concentric hypertrophy. Overall LVEF is 55-60%. Right ventricle is moderate to severely dilated with mildly reduced function. Estimated PA systolic p ressure 50 mmHg. Pacemaker wire in right heart. Left atrium is moderately dilated. Right atrium appears to be dilated. Trileaflet AV appears sclerotic without stenosis or insufficiency. Mild MV annular calcification without stenosis. Mild regurgitation. TV appears structurally normal with mild regurgitation. Normal pericardium. No pericardial effusion seen.
[2024-11-04 16:37] LABS: PROTHROMBIN TIME 19.6 SECONDS (9.0-12.0)
[2024-11-04] MEDS ORDERED: vancomycin/NS 1 GM ADD-VANTAGE 250 ML IV SCH (17:00)
[2024-11-04] MEDS: VANCOMYCIN 2GM/400ML H20 (PEG) 400 ML IV ONE (19:17)
[2024-11-04] MEDS: warfarin 10mg tablet PO ONE (21:07)
[2024-11-04] MEDS: warfarin 1mg tablet PO ONE (21:07)
[2024-11-04] MEDS: insulin glargine (Lantus) pen - multi-dose SQ SCH (21:10)
[2024-11-05] VITALS (13 sets, daily range): BP systolic 95–179; BP diastolic 41–99; PULSE 64–77; RESP 10–24; TEMP 97.6–98.8; O2SAT 91–97
[2024-11-05] MEDS: vancomycin/NS 1 GM ADD-VANTAGE 250 ML IV SCH (02:14)
[2024-11-05 07:50] LABS: BASOPHILS % (AUTO) 0.3 % (0-1); EOSINOPHILS % (AUTO) 0.1 % (0-6); HEMATOCRIT 47.1 % (42.0-52.0); LYMPHOCYTES # (AUTO) 0.9 X10'3 (1.1-4.8); LYMPHOCYTES % (AUTO) 9.8 % (21-51); MEAN CORPUSCULAR HEMOGLOBIN 29.7 PG (27.0-31.0); MEAN CORPUSCULAR VOLUME 87.4 FL (78-98); MEAN PLATELET VOLUME 7.8 FL (7.4-10.4); MONOCYTES # (AUTO) 0.8 X10'3 (0-0.9); MONOCYTES % (AUTO) 8.9 % (2-12); NEUTROPHILS # (AUTO) 7.7 X10'3 (1.8-7.7); NEUTROPHILS % (AUTO) 80.9 % (42-75); PLATELET COUNT 152 X10'3 (140-440); RED BLOOD COUNT 5.39 X10'6 (4.70-6.10); RED CELL DISTRIBUTION WIDTH 15.2 % (11.5-14.5); WHITE BLOOD COUNT 9.5 X10'3 (4.5-11.0)
[2024-11-05 08:00] LABS: INR 2.1 INR; PROTHROMBIN TIME 20.4 SECONDS (9.0-12.0)
[2024-11-05 08:09] LABS: ALANINE AMINOTRANSFERASE 37 U/L (12-78); ALBUMIN 3.1 G/DL (3.4-5.0); ALBUMIN/GLOBULIN RATIO 0.7 (1.1-1.5); ALKALINE PHOSPHATASE 64 IU/L (46-116); ANION GAP 4 (8-16); ASPARTATE AMINO TRANSFERASE 46 U/L (10-37); BILIRUBIN,TOTAL 0.6 MG/DL (0.1-1.0); BLOOD UREA NITROGEN 35 MG/DL (7-18); CALCIUM 8.3 MG/DL (8.5-10.1); CHLORIDE 101 MMOL/L (99-107); CREATININE 0.92 MG/DL (0.60-1.10); GLUCOSE 146 MG/DL (70-104); MAGNESIUM 2.5 MG/DL (1.5-2.4); POTASSIUM 4.9 MMOL/L (3.5-5.1); SODIUM 135 MMOL/L (135-145); TOTAL CARBON DIOXIDE 30.5 MMOL/L (24-32); TOTAL PROTEIN 7.3 G/DL (6.4-8.2); eCRCL 94 ML/MIN; eGFR 84 ML/MIN
[2024-11-05] MEDS: ringers solution, lacted 1,000 ML IV ONE (16:33)
[2024-11-05] MEDS: DOPamine 400mg/D5W 250ml 250 ML IV SCH ×2 (16:39→18:04)
--- NOTE | 2024-11-05 18:16 | PROGRESS NOTE ---
Daily Progress Note Providers to CC Resting comfortably in bed, had an episode of bradycardia today ~ Central Line/PICC still needed: No Alonzo-Non Protocol Alonzo Indications Met/Not Met: F/C Indications Not Met Antibiotic Timeout Antibiotic Ordered?: Yes MRSA Education MRSA Education Provided to pt: Yes Subjective As above Objective Vital Signs Date Time Temp Pulse Resp B/P (MAP) Pulse Ox O2 Delivery O2 Flow Rate FiO2 11/05/24 17:12 75 179/94 (122) 11/05/24 14:46 97.8 14 95 Nasal Cannula 3.0 11/05/24 08:26 21 Vital signs, stable ,afebrile. Pulse Oximetry reflects adequate oxygenation on 3 L oxygen nasal cannula General: well developed, well nourished. Awake , alert, and oriented x4, resting comfortably in the bed, in no acute distress . Skin: Warm, dry, no pallor, no rash or petechiae. HEENT: Atraumatic, normocephalic, EOMI, anicteric sclera B; pink conjunctiva; PERRLA, normal oropharynx, moist oral and nasal mucosa. Tympanic membrane , nose , throat clear. Neck: Trachea midline. Supple, full range of motion, no JVD, bruit , hepatojugular reflex , lymphadenopathy or masses, or other lesions Cardiac: Regular rhythm, regular rate no murmurs, rubs, or gallops. Normal S1 and S2, no S3 noticed. PMI is normal. Respiratory: Equal breath sounds bilaterally, no tachypnea; lungs clear to auscultation bilaterally, no wheezing ,rub or rales, or crackles. Chest wall is symmetric and without deformity. No signs of trauma. Chest wall is nontender. No signs of respiratory distress. Resonance is normal upon percussion bilaterally. Gastrointestinal: Abdomen symmetric, non-distended, soft, non-tender, normal bowel sounds x4 quadrant, normoactive, no hepatosplenomegaly , no masses , no bruit, no flank pain bilaterally. No voluntary guarding, rebound, or rigidity. No tenderness to percussion. No pulsatile masses. Equal femoral pulses. No Sotelo's sign or McBurney point tenderness. Back; no CVA tenderness bilaterally, no deformities. Neck and back are without deformity as well. No tenderness noted on palpation of the spinous processes. Spinous processes are midline. Cervical, thoracic, and lumbar paraspinal muscles are not tender and are without spasm. : normal external genitalia, without lesions, swelling, masses or tenderness. Musculoskeletal: Extremities, normal range of motion, non-tender, muscle strength 5/5 x 4. Negative Homans signs bilaterally on lower extremity. Distal pulses full symmetrical, no clubbing, cyanosis , edema. Neurological: Speech is clear, alert, and oriented x 4. No motor or sensory deficit, deep tendon reflexes normal, cerebellar intact. Cranial nerves II-XII intact. Psych: Alert and or appropriate, normal affect. Vascular: Good distal pulses, which are equal x4; capillary refill less than 2 seconds. Lymphatic, no lymphadenopathy. Result Diagram: 11/05/2459 11/05/2459 Coagulation Studies Laboratory Tests Test 11/03/24 19:50 11/05/24 06:59 Activated Partial Thromboplast Time 38 SECONDS (22-32) H Prothrombin Time 20.4 SECONDS (9.0-12.0) H INR International Normalized Ratio 2.1 INR Coagulation Comments Problem\Assessment\Plan Assessment/ Plan 59-year-old male with past medical history of CHF, atrial fibrillation, hemochromatosis, type 2 diabetes, hypertension, hypothyroidism and hyperlipidemia who came to the ED transferred from [place] due to shortness of breath. Admitted for evaluation and management of acute hypoxic respiratory failure, sepsis secondary to community acquired pneumonia and CHF exacerbation. Had an episode of bradycardia today we will interrogate pacemaker, started on dopamine infusion Sepsis, positive blood culture, for Staph, started on IV vancomycin, Zithromax Acute hypoxic respiratory failure Sepsis 2/2 community-acquired pneumonia, on antibiotics, steroids Acute on Chronic HFpEF Respiratory acidosis Small bilateral pleural effusions JEFF, likely prerenal secondary to vasomotor nephropathy Patient is currently on BiPAP with FiO2 of 70%, saturating 96% Blood pressure stable ABG shows: PH 7.317, pCO2 56.5, PO2 157.5, HC03 27.6 WBC 10.3, neutrophilia of 91.6%, Procalcitonin: 9, Lactic acid 1.8, awaiting repeat ProBNP 1545 Creatinine 1.2 Chest x-ray shows: Mild cardiomegaly and mild pulmonary vascular congestion. Small bilateral pleural effusions and mild bibasilar mixed opacities likely atelectasis although pneumonia could contribute to this appearance. Started on Rocephin IV 2 g daily and azithromycin IV daily Single dose of Lasix 60 mg IV given. Will do single dose for now in view of sepsis, but also we will avoid IV fluids at this time in view of CHF Strict I's and O's Per family patient is currently not on TARAH, Arb or ARNI Recently started on amlodipine. Echocardiogram completed Will consider upgrade to ICU if patient deteriorates Patient discussed in detail with Dr. Edouard Kan Atrial fibrillation, rate controlled Hypertension Hyperlipidemia History of Hemochromatosis Obstructive sleep apnea On Coumadin. INR is 2.0 Hb: 16.8 Continue atorvastatin. Pending med rec Iron studies ordered Patient not on CPAP at home, family is working on getting him one Type 2 diabetes According to family last A1c was below 7 We will obtain new A1c Hold metformin Start Lantus 15 units, lispro 3 units, low-dose supplemental Hypothyroidism Continue levothyroxine. Pending med rec Code Status: Full code DVT prophylaxis: Warfarin Nutrition: Carb controlled PT: Ordered Prognosis: Guarded Sepsis Screening Reassessment Date: November 05, 2024 Date of Service: November 05, 2024 Billing Provider: SVETLANA KIM MD Common Visit Codes: [id number] INP/OBS CARE(HIGH) SVETLANA KIM MD November 05, 2024 18:16
[2024-11-05] MEDS: methylPREDNISolone sod succ/PF 40mg inj. IV SCH (19:41)
[2024-11-05] MEDS: amLODIPine 5mg tablet PO ONE (21:01)
[2024-11-05] MEDS: warfarin 10mg tablet PO ONE (21:02)
[2024-11-05] MEDS: warfarin 1mg tablet PO ONE (21:02)
[2024-11-05] MEDS: azithromycin/NS 500mg/250ml 250 ML IV SCH (21:42)
[2024-11-06] VITALS (12 sets, daily range): BP systolic 139–195; BP diastolic 71–107; PULSE 57–84; RESP 14–22; TEMP 97.3–97.9; O2SAT 91–95
[2024-11-06] MEDS: VANCOMYCIN LEVEL IV ONE (01:45)
[2024-11-06 01:51] LABS: BASOPHILS % (AUTO) 0.2 % (0-1); EOSINOPHILS % (AUTO) 0.1 % (0-6); HEMATOCRIT 52.1 % (42.0-52.0); HEMOGLOBIN 17.7 g/dl (14.0-17.9); LYMPHOCYTES # (AUTO) 0.5 X10'3 (1.1-4.8); LYMPHOCYTES % (AUTO) 6.9 % (21-51); MEAN CORPUSCULAR HEMOGLOBIN 29.7 PG (27.0-31.0); MEAN CORPUSCULAR HGB CONC 33.9 g/dL (33.0-36.5); MEAN CORPUSCULAR VOLUME 87.4 FL (78-98); MEAN PLATELET VOLUME 7.6 FL (7.4-10.4); MONOCYTES # (AUTO) 0.2 X10'3 (0-0.9); NEUTROPHILS # (AUTO) 6.8 X10'3 (1.8-7.7); NEUTROPHILS % (AUTO) 89.8 % (42-75); PLATELET COUNT 148 X10'3 (140-440); RED BLOOD COUNT 5.96 X10'6 (4.70-6.10); RED CELL DISTRIBUTION WIDTH 15.2 % (11.5-14.5); WHITE BLOOD COUNT 7.6 X10'3 (4.5-11.0)
[2024-11-06 02:03] LABS: PROTHROMBIN TIME 19.5 SECONDS (9.0-12.0)
[2024-11-06 02:07] LABS: ALANINE AMINOTRANSFERASE 38 U/L (12-78); ALBUMIN 3.3 G/DL (3.4-5.0); ALBUMIN/GLOBULIN RATIO 0.7 (1.1-1.5); ALKALINE PHOSPHATASE 75 IU/L (46-116); ANION GAP 5 (8-16); ASPARTATE AMINO TRANSFERASE 44 U/L (10-37); BILIRUBIN,TOTAL 0.7 MG/DL (0.1-1.0); BLOOD UREA NITROGEN 27 MG/DL (7-18); BUN/CREATININE RATIO 33.8 (10.0-20.0); CALCIUM 8.5 MG/DL (8.5-10.1); CHLORIDE 98 MMOL/L (99-107); GLUCOSE 223 MG/DL (70-104); POTASSIUM 5.2 MMOL/L (3.5-5.1); SODIUM 134 MMOL/L (135-145); TOTAL CARBON DIOXIDE 31.2 MMOL/L (24-32); TOTAL PROTEIN 7.8 G/DL (6.4-8.2); VANCOMYCIN,TROUGH 11.6 ug/mL (10.0-20.0); eCRCL 108 ML/MIN; eGFR > 90 ML/MIN
--- NOTE | 2024-11-06 06:13 | ELECTROCARDIOGRAPH REPORT ---
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 NICOLE Herrera Measurements Intervals [place] Rate: 53 P: 0 MT: 0 QRS: 75 QRSD: 119 T: 56 QT: 418 QTc: 393 Interpretive Statements Atrial fibrillation Incomplete right bundle branch block Electronically Signed On 11-06-2024 13:29:[address] NICOLE Herrera Please click the below link to view image of tracing.
[2024-11-06] MEDS: VANCOmycin 1250MG/NS 250ml Bag 250 ML IV SCH (19:50)
--- NOTE | 2024-11-06 19:50 | PROGRESS NOTE ---
Daily Progress Note Providers to CC Feels better today, less shortness of breath ~ Central Line/PICC still needed: No Alonzo-Non Protocol Alonzo Indications Met/Not Met: F/C Indications Not Met Antibiotic Timeout Antibiotic Ordered?: Yes MRSA Education MRSA Education Provided to pt: Yes Subjective As above Objective Vital Signs Date Time Temp Pulse Resp B/P (MAP) Pulse Ox O2 Delivery O2 Flow Rate FiO2 11/06/24 15:00 97.8 70 14 145/78 (100) 93 Nasal Cannula 2.5 11/06/24 09:37 32 Vital signs, stable ,afebrile. Pulse Oximetry reflects adequate oxygenation 2 L oxygen nasal cannula General: well developed, well nourished. Awake , alert, and oriented x4, resting comfortably in the bed, in no acute distress . Skin: Warm, dry, no pallor, no rash or petechiae. HEENT: Atraumatic, normocephalic, EOMI, anicteric sclera B; pink conjunctiva; PERRLA, normal oropharynx, moist oral and nasal mucosa. Tympanic membrane , nose , throat clear. Neck: Trachea midline. Supple, full range of motion, no JVD, bruit , hepatojugular reflex , lymphadenopathy or masses, or other lesions Cardiac: Regular rhythm, regular rate no murmurs, rubs, or gallops. Normal S1 and S2, no S3 noticed. PMI is normal. Respiratory: Equal breath sounds bilaterally, no tachypnea; lungs clear to auscultation bilaterally, no wheezing ,rub or rales, or crackles. Chest wall is symmetric and without deformity. No signs of trauma. Chest wall is nontender. No signs of respiratory distress. Resonance is normal upon percussion bilaterally. Gastrointestinal: Abdomen symmetric, non-distended, soft, non-tender, normal bowel sounds x4 quadrant, normoactive, no hepatosplenomegaly , no masses , no bruit, no flank pain bilaterally. No voluntary guarding, rebound, or rigidity. No tenderness to percussion. No pulsatile masses. Equal femoral pulses. No Sotelo's sign or McBurney point tenderness. Back; no CVA tenderness bilaterally, no deformities. Neck and back are without deformity as well. No tenderness noted on palpation of the spinous processes. Spinous processes are midline. Cervical, thoracic, and lumbar paraspinal muscles are not tender and are without spasm. : normal external genitalia, without lesions, swelling, masses or tenderness. Musculoskeletal: Extremities, normal range of motion, non-tender, muscle strength 5/5 x 4. Negative Homans signs bilaterally on lower extremity. Distal pulses full symmetrical, no clubbing, cyanosis , locally, bilateral lower extremity plus two edema up to the thigh Neurological: Speech is clear, alert, and oriented x 4. No motor or sensory deficit, deep tendon reflexes normal, cerebellar intact. Cranial nerves II-XII intact. Psych: Alert and or appropriate, normal affect. Vascular: Good distal pulses, which are equal x4; capillary refill less than 2 seconds. Lymphatic, no lymphadenopathy. Result Diagram: 11/06/24 0141 11/06/24 0141 Coagulation Studies Laboratory Tests Test 11/03/24 19:50 11/06/24 01:41 Activated Partial Thromboplast Time 38 SECONDS (22-32) H Prothrombin Time 19.5 SECONDS (9.0-12.0) H INR International Normalized Ratio 2.0 INR Coagulation Comments Problem\Assessment\Plan Assessment/ Plan 59-year-old male with past medical history of CHF, atrial fibrillation, hemochromatosis, type 2 diabetes, hypertension, hypothyroidism and hyperlipidemia who came to the ED transferred from [place] due to shortness of breath. Admitted for evaluation and management of acute hypoxic respiratory failure, sepsis secondary to community acquired pneumonia and CHF exacerbation. Had an episode of bradycardia today we will interrogate pacemaker, started on dopamine infusion Sepsis, positive blood culture, for Staph, started on IV vancomycin, Zithromax Acute hypoxic respiratory failure Sepsis 2/2 community-acquired pneumonia, on antibiotics, steroids Acute on Chronic HFpEF, in exacerbation, ejection fraction 57% associated with pulmonary hypertension Respiratory acidosis Small bilateral pleural effusions JEFF, likely prerenal secondary to vasomotor nephropathy Patient is currently on BiPAP with FiO2 of 70%, saturating 96% Blood pressure stable ABG shows: PH 7.317, pCO2 56.5, PO2 157.5, HC03 27.6 WBC 10.3, neutrophilia of 91.6%, Procalcitonin: 9, Lactic acid 1.8, awaiting repeat ProBNP 1545 Creatinine 1.2 Chest x-ray shows: Mild cardiomegaly and mild pulmonary vascular congestion. Small bilateral pleural effusions and mild bibasilar mixed opacities likely atelectasis although pneumonia could contribute to this appearance. Started on Rocephin IV 2 g daily and azithromycin IV daily Single dose of Lasix 60 mg IV given. Will do single dose for now in view of sepsis, but also we will avoid IV fluids at this time in view of CHF Strict I's and O's Per family patient is currently not on TARAH, Arb or ARNI Recently started on amlodipine. Echocardiogram completed Will consider upgrade to ICU if patient deteriorates Patient discussed in detail with Dr. Edouard Kan Atrial fibrillation, rate controlled Hypertension Hyperlipidemia History of Hemochromatosis Obstructive sleep apnea On Coumadin. INR is 2.0 Hb: 16.8 Continue atorvastatin. Pending med rec Iron studies ordered Patient not on CPAP at home, family is working on getting him one Type 2 diabetes According to family last A1c was below 7 We will obtain new A1c Hold metformin Start Lantus 15 units, lispro 3 units, low-dose supplemental Hypothyroidism Continue levothyroxine. Pending med rec Code Status: Full code DVT prophylaxis: Warfarin Nutrition: Carb controlled PT: Ordered Prognosis: Guarded Sepsis Screening Reassessment Date: November 06, 2024 Date of Service: November 06, 2024 Billing Provider: SVETLANA KIM MD Common Visit Codes: [id number] INP/OBS CARE(HIGH) SVETLANA KIM MD November 06, 2024 19:50
[2024-11-06] MEDS: warfarin 4mg tablet PO ONE (20:58)
[2024-11-07] VITALS (13 sets, daily range): BP systolic 138–178; BP diastolic 72–96; PULSE 68–79; RESP 10–22; TEMP 98.1–98.6; O2SAT 92–97
[2024-11-07] MEDS: amLODIPine 5mg tablet PO ONE (03:33)
[2024-11-07 06:21] LABS: BASOPHILS % (AUTO) 0 % (0-1); EOSINOPHILS % (AUTO) 0 % (0-6); HEMATOCRIT 52.5 % (42.0-52.0); LYMPHOCYTES # (AUTO) 0.6 X10'3 (1.1-4.8); LYMPHOCYTES % (AUTO) 6.7 % (21-51); MEAN CORPUSCULAR HGB CONC 34.3 g/dL (33.0-36.5); MEAN CORPUSCULAR VOLUME 87.4 FL (78-98); MEAN PLATELET VOLUME 7.4 FL (7.4-10.4); MONOCYTES # (AUTO) 0.4 X10'3 (0-0.9); MONOCYTES % (AUTO) 4.4 % (2-12); NEUTROPHILS # (AUTO) 7.3 X10'3 (1.8-7.7); NEUTROPHILS % (AUTO) 88.9 % (42-75); PLATELET COUNT 163 X10'3 (140-440); RED BLOOD COUNT 6.01 X10'6 (4.70-6.10); RED CELL DISTRIBUTION WIDTH 14.6 % (11.5-14.5); WHITE BLOOD COUNT 8.2 X10'3 (4.5-11.0)
[2024-11-07 06:23] LABS: INR 3.2 INR; PROTHROMBIN TIME 29.4 SECONDS (9.0-12.0)
[2024-11-07 06:34] LABS: ALANINE AMINOTRANSFERASE 34 U/L (12-78); ALBUMIN 3.2 G/DL (3.4-5.0); ALBUMIN/GLOBULIN RATIO 0.7 (1.1-1.5); ALKALINE PHOSPHATASE 71 IU/L (46-116); ANION GAP 3 (8-16); ASPARTATE AMINO TRANSFERASE 27 U/L (10-37); BILIRUBIN,TOTAL 0.6 MG/DL (0.1-1.0); BLOOD UREA NITROGEN 23 MG/DL (7-18); BUN/CREATININE RATIO 27.4 (10.0-20.0); CALCIUM 8.5 MG/DL (8.5-10.1); CHLORIDE 101 MMOL/L (99-107); CREATININE 0.84 MG/DL (0.60-1.10); GLUCOSE 243 MG/DL (70-104); MAGNESIUM 2.3 MG/DL (1.5-2.4); POTASSIUM 4.6 MMOL/L (3.5-5.1); SODIUM 136 MMOL/L (135-145); TOTAL CARBON DIOXIDE 32.4 MMOL/L (24-32); TOTAL PROTEIN 7.6 G/DL (6.4-8.2); eCRCL 103 ML/MIN; eGFR > 90 ML/MIN
[2024-11-07] MEDS: levoTHYROXINE 25mcg tablet PO SCH (08:05)
[2024-11-07] MEDS: amLODIPine 5mg tablet PO SCH (08:08)
--- NOTE | 2024-11-07 11:40 | CONSULTATION REPORT ---
History of Present Illness Providers to CC CC: ALISSA TEAGUE MD ~ Reason for Admit\Admit Dx: Shortness of breath History of Present Illness This is a 59-year-old male with history of sleep apnea, hypertension, hyperlipidemia, AFib, sick sinus syndrome status post permanent pacemaker. Presented with shortness for breath and fevers that started just prior to arrival. During the course of his admission on telemetry he was found to have non capturing beats on his pacemaker with heart rate intermittently down to the 30s. He has not no dizziness, lightheadedness. No presyncope. No chest pain or pressure. He underwent a device interrogation that demonstrated high RV thresholds and chest x-ray shows high septal placement of RV lead. Cardiology consultation was therefore requested. Unfortunately, patient also presented with fevers and shortness for breath with chest x-ray consistent with pneumonia. He has positive blood cultures with Gram-positive cocci as well. Allergies: Coded Allergies: No Known Allergies (Unverified , 09/04/23) Home Medications Home Medications Active Reported Norvasc (Amlodipine Besylate) 5 Mg Tablet 1 Tab PO DAILY 30 Days K-Dur (Potassium Chloride) 10 Meq Tab.prt.sr Metformin HCl 500 Mg Tablet 1 Tab PO Atorvastatin Calcium 40 Mg Tablet 1 Tab PO HS Warfarin Sodium 10 Mg Tablet 1 Tab PO DAILY Warfarin Sodium 2 Mg Tablet 1 Tab PO DAILY Levothyroxine Sodium 50 Mcg Tablet 1 Tab PO DAILY Tadalafil 5 Mg Tablet 1 Tab PO DAILY Furosemide 20 Mg Tablet 1 Tab PO QAM Past Medical History Medical History Comment Sleep apnea Hypertension Diabetes Atrial fibrillation Sick sinus syndrome status post pacemaker Hypothyroidism Hemochromatosis Past Surgical History Surgical History Comment Pacemaker Past Family History Family History: FH: type 2 diabetes MOTHER Past Social History Social History Comment Chews tobacco. No alcohol. No drug use. Physical Exam Last Vital Signs Recorded: RN Vital Signs have been reviewed: Yes, Temperature: 98.2, Source: Oral, Heart Rate: 71, Respiratory Rate: 14, BP: 176/96, Pulse Oximetry: 96, Weight: 185.000 Physical Exam General: Awake, alert, oriented. No apparent distress Neck: Supple. Normal range of motion. No JVD Respiratory: Lungs are diminished in the bases to auscultation bilaterally. No respiratory distress. Chest: Normal shape and size. No accessory muscle use. Cardiovascular: Irregular. S1-S2. No murmur, gallop, rub. Gastrointestinal: Abdomen is soft. Nontender to palpation. Bowel sounds present. Extremities: No lower extremity edema, cyanosis or clubbing. Neurologic: Alert and oriented x4. Nonfocal Psychiatric: Normal mood and affect. Skin: Normal color. Warm and dry. Review of Systems ROS Review of systems negative except documented in HPI. Results Echocardiogram Echocardiogram Conclusion Normal LV size and function. Mild concentric hypertrophy. Overall LVEF is 55- 60%. Right ventricle is moderate to severely dilated with mildly reduced function. Estimated PA systolic pressure 50 mmHg. Pacemaker wire in right heart. Left atrium is moderately dilated. Right atrium appears to be dilated. Trileaflet AV appears sclerotic without stenosis or insufficiency. Mild MV annular calcification without stenosis. Mild regurgitation. TV appears structurally normal with mild regurgitation. Normal pericardium. No pericardial effusion seen. Dictated by:SRINI KIRK MD Dictation date and time:11/04/24 1452 Diagram Lab Result Diagram: 11/07/24 0543 11/07/24 0543 Assessment/Plan Additional Plan This is a 59-year-old male who presented with symptoms of shortness for breath and fever. The following is his problem list: Pneumonia Gram-positive cocci on blood cultures Antibiotic management per hospitalist Pacemaker non capture History of sick sinus syndrome Chads Vasc one --telemetry strips and device interrogation reviewed. Patient has not dizziness or lightheadedness. Recommend stopping dopamine which was stopped prior to my consultation. I would not resume unless he is symptomatic. We will plan for outpatient follow up for possible lead revision. Other comorbidities Hypertension on amlodipine Hyperlipidemia History of hemochromatosis History of obstructive sleep apnea For any further cardiology needs please contact Dr. Kirk directly. Supervising MD Supervising Physician: EDMOND Pacheco NP November 07, 2024 11:40
[2024-11-07] MEDS: VANCOMYCIN LEVEL IV ONE (17:57)
[2024-11-07] MEDS: atorvastatin 20mg tablet PO SCH (19:29)
--- NOTE | 2024-11-07 20:37 | PROGRESS NOTE ---
Daily Progress Note Providers to CC ~ feels better today, less shortness of breath less cough Central Line/PICC still needed: No Alonzo-Non Protocol Alonzo Indications Met/Not Met: F/C Indications Not Met Antibiotic Timeout Antibiotic Ordered?: Yes MRSA Education MRSA Education Provided to pt: Yes Subjective As above Objective Vital Signs Date Time Temp Pulse Resp B/P (MAP) Pulse Ox O2 Delivery O2 Flow Rate FiO2 11/07/24 20:30 71 14 97 Nasal Cannula* 3 32 11/07/24 15:00 98.1 138/76 (96) Vital signs, stable ,afebrile. Pulse Oximetry reflects adequate oxygenation on 3 L oxygen nasal cannula General: well developed, well nourished. Awake , alert, and oriented x4, resting comfortably in the bed, in no acute distress . Skin: Warm, dry, no pallor, no rash or petechiae. HEENT: Atraumatic, normocephalic, EOMI, anicteric sclera B; pink conjunctiva; PERRLA, normal oropharynx, moist oral and nasal mucosa. Tympanic membrane , nose , throat clear. Neck: Trachea midline. Supple, full range of motion, no JVD, bruit , hepatojugular reflex , lymphadenopathy or masses, or other lesions Cardiac: Regular rhythm, regular rate no murmurs, rubs, or gallops. Normal S1 and S2, no S3 noticed. PMI is normal. Respiratory: Equal breath sounds bilaterally, no tachypnea; lungs clear to auscultation bilaterally, no wheezing ,rub or rales, or crackles. Chest wall is symmetric and without deformity. No signs of trauma. Chest wall is nontender. No signs of respiratory distress. Resonance is normal upon percussion bilaterally. Gastrointestinal: Abdomen symmetric, non-distended, soft, non-tender, normal bowel sounds x4 quadrant, normoactive, no hepatosplenomegaly , no masses , no bruit, no flank pain bilaterally. No voluntary guarding, rebound, or rigidity. No tenderness to percussion. No pulsatile masses. Equal femoral pulses. No Sotelo's sign or McBurney point tenderness. Back; no CVA tenderness bilaterally, no deformities. Neck and back are without deformity as well. No tenderness noted on palpation of the spinous processes. Spinous processes are midline. Cervical, thoracic, and lumbar paraspinal muscles are not tender and are without spasm. : normal external genitalia, without lesions, swelling, masses or tenderness. Musculoskeletal: Extremities, normal range of motion, non-tender, muscle strength 5/5 x 4. Negative Homans signs bilaterally on lower extremity. Distal pulses full symmetrical, no clubbing, cyanosis , edema. Neurological: Speech is clear, alert, and oriented x 4. No motor or sensory deficit, deep tendon reflexes normal, cerebellar intact. Cranial nerves II-XII intact. Psych: Alert and or appropriate, normal affect. Vascular: Good distal pulses, which are equal x4; capillary refill less than 2 seconds. Lymphatic, no lymphadenopathy. Result Diagram: 11/07/24 0543 11/07/24 0543 Coagulation Studies Laboratory Tests Test 11/03/24 19:50 11/07/24 05:43 Activated Partial Thromboplast Time 38 SECONDS (22-32) H Prothrombin Time 29.4 SECONDS (9.0-12.0) H INR International Normalized Ratio 3.2 INR # Coagulation Comments Problem\Assessment\Plan Assessment/ Plan 59-year-old male with past medical history of CHF, atrial fibrillation, hemochromatosis, type 2 diabetes, hypertension, hypothyroidism and hyperlipidemia who came to the ED transferred from [place] due to shortness of breath. Admitted for evaluation and management of acute hypoxic respiratory failure, sepsis secondary to community acquired pneumonia and CHF exacerbation. Had an episode of bradycardia today we will interrogate pacemaker, started on dopamine infusion Sepsis, positive blood culture, for Staph, started on IV vancomycin, Zithromax Acute hypoxic respiratory failure Sepsis 2/2 community-acquired pneumonia, on antibiotics, steroids Acute on Chronic HFpEF, in exacerbation, ejection fraction 57% associated with pulmonary hypertension Respiratory acidosis Small bilateral pleural effusions JEFF, likely prerenal secondary to vasomotor nephropathy Patient is currently on BiPAP with FiO2 of 70%, saturating 96% Blood pressure stable ABG shows: PH 7.317, pCO2 56.5, PO2 157.5, HC03 27.6 WBC 10.3, neutrophilia of 91.6%, Procalcitonin: 9, Lactic acid 1.8, awaiting repeat ProBNP 1545 Creatinine 1.2 Chest x-ray shows: Mild cardiomegaly and mild pulmonary vascular congestion. Small bilateral pleural effusions and mild bibasilar mixed opacities likely atelectasis although pneumonia could contribute to this appearance. Started on Rocephin IV 2 g daily and azithromycin IV daily Single dose of Lasix 60 mg IV given. Will do single dose for now in view of sepsis, but also we will avoid IV fluids at this time in view of CHF Strict I's and O's Per family patient is currently not on TARAH, Arb or ARNI Recently started on amlodipine. Echocardiogram completed Will consider upgrade to ICU if patient deteriorates Patient discussed in detail with Dr. Edouard Kan Atrial fibrillation, rate controlled Hypertension Hyperlipidemia History of Hemochromatosis Obstructive sleep apnea On Coumadin. INR is 2.0 Hb: 16.8 Continue atorvastatin. Pending med rec Iron studies ordered Patient not on CPAP at home, family is working on getting him one Type 2 diabetes According to family last A1c was below 7 We will obtain new A1c Hold metformin Start Lantus 15 units, lispro 3 units, low-dose supplemental Hypothyroidism Continue levothyroxine. Pending med rec Code Status: Full code DVT prophylaxis: Warfarin Nutrition: Carb controlled PT: Ordered Prognosis: Guarded Sepsis Screening Reassessment Date: November 07, 2024 Date of Service: November 07, 2024 Billing Provider: SVETLANA KIM MD Common Visit Codes: 33926-AMIBMXRWCH INP/OBS CARE(HIGH) SVETLANA KIM MD November 07, 2024 20:37
[2024-11-08 06:00] VITALS: BP 156/95; PULSE 74; RESP 15; TEMP 98.7; O2SAT 100; O2SAT 98
[2024-11-08 06:06] LABS: BASOPHILS % (AUTO) 0.1 % (0-1); EOSINOPHILS % (AUTO) 0 % (0-6); HEMATOCRIT 54.7 % (42.0-52.0); LYMPHOCYTES # (AUTO) 0.6 X10'3 (1.1-4.8); LYMPHOCYTES % (AUTO) 5.5 % (21-51); MEAN CORPUSCULAR HEMOGLOBIN 29.5 PG (27.0-31.0); MEAN CORPUSCULAR HGB CONC 33.7 g/dL (33.0-36.5); MEAN CORPUSCULAR VOLUME 87.7 FL (78-98); MEAN PLATELET VOLUME 7.6 FL (7.4-10.4); MONOCYTES # (AUTO) 0.4 X10'3 (0-0.9); MONOCYTES % (AUTO) 3.6 % (2-12); NEUTROPHILS # (AUTO) 9.5 X10'3 (1.8-7.7); NEUTROPHILS % (AUTO) 90.8 % (42-75); PLATELET COUNT 193 X10'3 (140-440); RED BLOOD COUNT 6.23 X10'6 (4.70-6.10); RED CELL DISTRIBUTION WIDTH 14.7 % (11.5-14.5); WHITE BLOOD COUNT 10.5 X10'3 (4.5-11.0)
[2024-11-08 06:11] LABS: INR 3.8 INR; PROTHROMBIN TIME 34.4 SECONDS (9.0-12.0)
[2024-11-08 06:17] LABS: ALANINE AMINOTRANSFERASE 38 U/L (12-78); ALBUMIN 3.3 G/DL (3.4-5.0); ALBUMIN/GLOBULIN RATIO 0.7 (1.1-1.5); ALKALINE PHOSPHATASE 75 IU/L (46-116); ANION GAP 4 (8-16); ASPARTATE AMINO TRANSFERASE 20 U/L (10-37); BILIRUBIN,TOTAL 0.7 MG/DL (0.1-1.0); BLOOD UREA NITROGEN 30 MG/DL (7-18); BUN/CREATININE RATIO 33.7 (10.0-20.0); CALCIUM 8.7 MG/DL (8.5-10.1); CHLORIDE 101 MMOL/L (99-107); CREATININE 0.89 MG/DL (0.60-1.10); GLUCOSE 253 MG/DL (70-104); SODIUM 136 MMOL/L (135-145); TOTAL CARBON DIOXIDE 31.1 MMOL/L (24-32); TOTAL PROTEIN 7.8 G/DL (6.4-8.2); eCRCL 97 ML/MIN; eGFR 87 ML/MIN
[2024-11-08 06:35] LABS: HEMOGLOBIN 18.4 g/dl (14.0-17.9)
[2024-11-08] MEDS: azithromycin 250mg tablet PO SCH (07:47)
[2024-11-08 08:00] VITALS: RESP 17; O2SAT 96
[2024-11-08] MEDS: aspirin 81mg tab.chew PO SCH (08:06)
[2024-11-08 08:32] VITALS: PULSE 79; RESP 16; O2SAT 98
[2024-11-08 11:00] VITALS: BP 155/67; PULSE 92; RESP 17; TEMP 98.4; O2SAT 94
[2024-11-08 15:00] VITALS: BP 141/72; PULSE 72; RESP 19; TEMP 97.9; O2SAT 96
[2024-11-08] MEDS ORDERED: DOXY-243 PO (16:08)
[2024-11-08] MEDS ORDERED: VANCOMYCIN/WATER FOR INJ (PEG) 1.5GM/300 ML IVPB IV SCH (18:00)
--- NOTE | 2024-11-08 19:48 | DISCHARGE SUMMARY ---
Discharge Summary Providers to CC Feel better today asking to be discharged home for emergency family reasons ~ Discharge Summary Assessment CHF, diastolic, in exacerbation Community-acquired pneumonia mixed angelika Gram-positive Gram-negative Obstructive sleep apnea Acute respiratory failure secondary to hypoxia Sepsis Pacemaker status Morbid obesity Atrial fibrillation Hemochromatosis Type 2 diabetes Hypertension Hypothyroidism Hyperlipidemia Admission Diagnosis: Respiratory failure/PNA Admission Diagnosis Comment: CHF, diastolic, in exacerbation Community-acquired pneumonia mixed angelika Gram-positive Gram-negative Obstructive sleep apnea Acute respiratory failure secondary to hypoxia Sepsis Pacemaker status Morbid obesity Atrial fibrillation Hemochromatosis Type 2 diabetes Hypertension Hypothyroidism Hyperlipidemia Hospital Course DATE OF ADMISSION: November 03, 2024 DATE OF DISCHARGE: November 08, 2024 Discharge Diagnosis\Comment: CHF, diastolic, in exacerbation Community-acquired pneumonia mixed angelika Gram-positive Gram-negative Obstructive sleep apnea Acute respiratory failure secondary to hypoxia Sepsis Pacemaker status Morbid obesity Atrial fibrillation Hemochromatosis Type 2 diabetes Hypertension Hypothyroidism Hyperlipidemia Operations\Procedures: Non 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 Patient was difficult to arouse and not answering questions, medical history obtained from . She reports that for 1 week patient has been experiencing increasing shortness of breath, worse at night, with the orthopnea and PND, as well as generalized weakness and malaise. She states that yesterday he presented with nasal congestion, increasing confusion, worsening shortness of breath with decreased oxygen saturation which was measured at home at 87%, fever and chills. Patient was taken to [facility] where after giving IV Lasix and IV antibiotics patient was sent to our facility for further management.Of note, family reports that patient has been at [facility] twice in the last month due to CHF exacerbation symptoms. After admission patient was extensively evaluated treated today he feels better asking to be discharged home for emergency family reasons, explained to the patient to continue treatment as inpatient condition, risk of severe complications and explained, patient elected to be discharged for family reasons, today on physical exam Vital signs, stable ,afebrile. Pulse Oximetry reflects adequate oxygenation. General: well developed, well nourished. Awake , alert, and oriented x4, resting comfortably in the bed, in no acute distress . Skin: Warm, dry, no pallor, no rash or petechiae. HEENT: Atraumatic, normocephalic, EOMI, anicteric sclera B; pink conjunctiva; PERRLA, normal oropharynx, moist oral and nasal mucosa. Tympanic membrane , nose , throat clear. Neck: Trachea midline. Supple, full range of motion, no JVD, bruit , hepatojugular reflex , lymphadenopathy or masses, or other lesions Cardiac: Regular rhythm, regular rate no murmurs, rubs, or gallops. Normal S1 and S2, no S3 noticed. PMI is normal. Respiratory: Equal breath sounds bilaterally, no tachypnea; lungs clear to auscultation bilaterally, no wheezing ,rub or rales, or crackles. Chest wall is symmetric and without deformity. No signs of trauma. Chest wall is nontender. No signs of respiratory distress. Resonance is normal upon percussion bilaterally. Gastrointestinal: Abdomen symmetric, non-distended, soft, non-tender, normal bowel sounds x4 quadrant, normoactive, no hepatosplenomegaly , no masses , no bruit, no flank pain bilaterally. No voluntary guarding, rebound, or rigidity. No tenderness to percussion. No pulsatile masses. Equal femoral pulses. No Sotelo's sign or McBurney point tenderness. Back; no CVA tenderness bilaterally, no deformities. Neck and back are without deformity as well. No tenderness noted on palpation of the spinous processes. Spinous processes are midline. Cervical, thoracic, and lumbar paraspinal muscles are not tender and are without spasm. : normal external genitalia, without lesions, swelling, masses or tenderness. Musculoskeletal: Extremities, normal range of motion, non-tender, muscle stre ngth 5/5 x 4. Negative Homans signs bilaterally on lower extremity. Distal pulses full symmetrical, no clubbing, cyanosis , edema. Neurological: Speech is clear, alert, and oriented x 4. No motor or sensory deficit, deep tendon reflexes normal, cerebellar intact. Cranial nerves II-XII intact. Psych: Alert and or appropriate, normal affect. Vascular: Good distal pulses, which are equal x4; capillary refill less than 2 seconds. Lymphatic, no lymphadenopathy. *Problems/Diagnosis: (1) Atrial fibrillation (2) Hypoxic Status: Acute (3) CHF exacerbation Status: Acute (4) Acute hypoxic respiratory failure Status: Acute Total Time Spent on D/C: > 30 Minutes Date of Service: November 08, 2024 Billing Provider: SVETLANA KIM MD Common Visit Codes: 40631-ZDW/OBS DISCH DAY >30min Problem Qualifiers (1) CHF exacerbation: Qualified Codes: I50.9 - Heart failure, unspecified SVETLANA KIM MD November 08, 2024 19:48
[2024-11-09] MEDS ORDERED: VANCOMYCIN LEVEL IV ONE (17:30)
== END 2024-11-08 16:51 | disposition home or self-care (01) | DRG 871 ==
LOC: ER 17:42 → ED HOLD 20:11 → PCU 3S 11-04 00:05
PROVIDERS: ADMIT Internal Medicine Critical Care Medicine; ATTEND Family Medicine
PROC: 5A09357 Assistance with Respiratory Ventilation, Less than 24 Consecutive Hours, Continuous Positive Airway Pressure (ICD-10-PCS; principal; 2024-11-03)
PROC: 5A09357 Assistance with Respiratory Ventilation, Less than 24 Consecutive Hours, Continuous Positive Airway Pressure (ICD-10-PCS; 2024-11-04)
DX: A41.9 Sepsis, unspecified organism (principal); I50.33 Acute on chronic diastolic (congestive) heart failure; J15.69 Pneumonia due to other Gram-negative bacteria; J96.01 Acute respiratory failure with hypoxia; J15.9 Unspecified bacterial pneumonia; N17.9 Acute kidney failure, unspecified; Z68.43 Body mass index [BMI] 50.0-59.9, adult; E03.9 Hypothyroidism, unspecified; E78.00 Pure hypercholesterolemia, unspecified; I48.91 Unspecified atrial fibrillation; G47.33 Obstructive sleep apnea (adult) (pediatric); I11.0 Hypertensive heart disease with heart failure; E66.01 Morbid (severe) obesity due to excess calories; E83.119 Hemochromatosis, unspecified; E11.9 Type 2 diabetes mellitus without complications; Z79.899 Other long term (current) drug therapy; Z95.0 Presence of cardiac pacemaker; Z79.01 Long term (current) use of anticoagulants; Z79.84 Long term (current) use of oral hypoglycemic drugs; Z72.0 Tobacco use
CPT/HCPCS: 36415; 36600; 71045; 80048; 80053; 80202; 81001; 82728; 82803; 82948; 83036; 83540; 83550; 83605; 83735; 83880; 84145; 84484; 85018; 85025; 85610; 85730; 87040; 87077; 87081; 87186; 93005; 93306; 94660; 94760; 96365; 96367; 96375; 99291; A4615; C1758; G0378; J0131; J0456; J0696; J1265; J1815; J1938; J2919; J3370; J3372; J7040; J7120

== ENCOUNTER 2025-05-19 15:30 | Inpatient (IN) | payer BC ==
[~2025-05-19] VITALS: Ht 182.9 cm; Wt 162.2 kg
[~2025-05-19 15:30] MED LIST changes: +AMLO5TAB5 PO
--- NOTE | 2025-05-19 15:55 | ELECTROCARDIOGRAPH REPORT ---
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 NICOLE Herrera Measurements Intervals [place] Rate: 73 P: 0 WI: 68 QRS: 100 QRSD: 119 T: 77 QT: 423 QTc: 467 Interpretive Statements A-V dual-paced complexes w/ some inhibition No further analysis attempted due to paced rhythm Electronically Signed On 05-21-2025 12:54:[address] NICOLE Herrera Please click the below link to view image of tracing.
--- NOTE | 2025-05-19 15:56 | Physician Documentation ---
History of Present Illness ~ Chief Complaint: Shortness of Breath Stated Complaint: CHF,SOB Time Seen by MD: 18:08 HPI 59-year-old male with multitude of comorbidities presents with increased shortness of breath over the last few days. Does have congestive heart failure, COPD and a history of atrial fibrillation 80 mg of Lasix daily. 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 States he has primary complaint of shortness of breath he denies any chest pain nausea vomiting. He has chronic lower extremity leg swelling and redness. He has only mildly increased edema in his extremities The patient tells me that over the past 3 days he has had significantly w orsening shortness of breath. This includes at rest and with exertion. He feels like his legs are slightly more swollen, but he especially feels swollen up into his abdomen. He is not able to lay back and sleep. No fevers or chills. No viral type symptoms. No chest pain. They did double his Lasix over the past 3 days but his symptoms continued to worsen. In the past he requires IV Lasix when his symptoms get this bad. He does not wear oxygen at home. He does have low oxygen levels today. Day of Onset: May 19, 2025 Medication Reconciliation Allergies: Coded Allergies: No Known Allergies (Unverified , 05/19/25) Scheduled Amlodipine Besylate (Amlodipine Besylate), 1 TAB PO DAILY, (Reported) Atorvastatin Calcium (Atorvastatin Calcium), 1 TAB PO HS, (Reported) Cholecalciferol (Vitamin D3) (Vitamin D3), 1 CAP PO DAILY, (Reported) Furosemide (Lasix), 1 TAB PO DAILY, (Reported) Furosemide (Lasix), 1 TAB PO PRN, (Reported) Levothyroxine Sodium (Levothyroxine Sodium), 1 TAB PO DAILY, (Reported) Magnesium Oxide (Magnesium), 1 CAP PO DAILY, (Reported) Potassium Chloride (Potassium Chloride), 1 TAB PO DAILY, (Reported) Potassium Chloride (Potassium Chloride), 1 TAB PO PRN, (Reported) Tadalafil (Tadalafil), 1 TAB PO DAILY, (Reported) Warfarin Sodium (Warfarin Sodium), 1 TAB PO DAILY, (Reported) Warfarin Sodium (Warfarin Sodium), 1 TAB PO DAILY, (Reported) Miscellaneous Medications Metformin HCl (Metformin HCl), 1 TAB PO, (Reported) Discontinued Medications Amlodipine Besylate (Norvasc), 1 TAB PO DAILY, (Reported) Discontinued Reason: Prescription changed Furosemide (Furosemide), 1 TAB PO QAM, (Reported) Discontinued Reason: Prescription changed Levothyroxine Sodium (Levothyroxine Sodium), 1 TAB PO DAILY, (Reported) Discontinued Reason: Prescription changed Potassium Chloride (K-Dur), (Reported) Discontinued Reason: Prescription changed Past Medical History Past Medical History: Atrial Fibrillation, Congestive Heart Failure, High Cholesterol, Hypertension, Sleep Apnea, Diabetes, Cellulitis Past Surgical History: pacemaker Patient History: FH: type 2 diabetes MOTHER Alcohol Use: Sober Drug Use: none Lives with: Spouse Lives In: Home Occupation: employed Review of Systems All Other Systems at this time: Reviewed and Negative ROS As stated above in the HPI, otherwise all systems are reviewed and negative. Constitutional: Denies: fever Respiratory: Reports: shortness of breath, SOB with exertion, SOB at rest Cardiovascular: Denies: chest pain Physical Exam Vital Signs: Temperature: 97.6, Source: Temporal, Heart Rate: 72, Respiratory Rate: 24, BP: 145/85, Pulse Oximetry: 89, Weight: 185.400 Oxygen Flow Rate: 0 Physical Exam General: This is a pleasant tired-appearing obese middle-aged man, family at bedside HEENT: Atraumatic, oropharynx is moist Heart: Irregular rhythm, appears intermittently paced on the monitor Lungs: Diminished breath sounds bilateral, crackles in bilateral lung bases, clear in the upper lung pineda Abdomen: Soft, but distended abdomen Extremities: Severe pitting edema with chronic skin changes to both lower extremities Neuro: Alert and oriented, does not appear confused Psychiatric: Appears tired but is cooperative with exam Progress Results/Orders Results/Orders Orders - JEFFREY MOSER COMPETITIVE INTELLIGENCE MANAGER Chest,Single View (05/19/25 15:53) Monitor (05/19/25 15:53) Saline Lock (05/19/25 15:53) Oxygen (05/19/25 15:53) Completed Orders - JEFFREY MOSER COMPETITIVE INTELLIGENCE MANAGER Chest,Single View (05/19/25 15:53) Cbc/Diff (05/19/25 15:53) BMP (05/19/25 15:53) PBNP (05/19/25 15:53) Electrocardiogram (05/19/25 15:53) Hs Troponin I W Calculations (05/19/25 15:53) Hs Troponin I W Calculations (05/19/25 17:53) Hs Troponin I W Calculations (05/19/25 18:53) Hgb A1c (05/19/25 16:18) MG (05/19/25 16:18) Medications Received in ER Medications (Trade) Dose Ordered Sig/Cassie Route PRN Reason Start Time Stop Time Status Last Admin Dose Admin (Lasix inj) 80 mg ONCE ONCE IV 05/19/25 18:45 05/19/25 18:46 DC 05/19/25 19:10 80 MG Vital Signs 05/19/25 05/19/25 05/19/25 05/19/25 15:43 18:04 18:07 19:20 Temp 97.6 Pulse 72 Resp 24 23 17 B/P (MAP) 145/85 Pulse Ox 89 96 O2 Delivery Nasal Cannula* O2 Flow Rate 0 3 FiO2 32 05/19/25 19:22 Pulse 73 Resp 18 B/P (MAP) 150/77 (101) Pulse Ox 98 O2 Flow Rate 3.0 Laboratory Tests Test 05/19/25 16:18 05/19/25 18:01 05/19/25 19:15 White Blood Count 6.8 Red Blood Count 5.72 Hemoglobin 16.3 Hematocrit 48.9 Mean Corpuscular Volume 85.5 Mean Corpuscular Hemoglobin 28.4 Mean Corpuscular Hemoglobin Concent 33.3 Red Cell Distribution Width 15.2 H Platelet Count 208 Mean Platelet Volume 7.5 Neutrophils (%) (Auto) 74.5 Lymphocytes (%) (Auto) 12.9 L Monocytes (%) (Auto) 10.3 Eosinophils (%) (Auto) 1.0 Basophils (%) (Auto) 1.3 H Neutrophils # (Auto) 5.1 Lymphocytes # (Auto) 0.9 L Monocytes # (Auto) 0.7 Eosinophils # (Auto) 0.1 Basophils # (Auto) 0.1 CBC Comment Prothrombin Time 30.4 H INR International Normalized Ratio 3.3 Coagulation Comments Sodium Level 140 Potassium Level 5.2 H Chloride Level 102 Carbon Dioxide Level 33.2 H Anion Gap 5 L Blood Urea Nitrogen 20 H Creatinine 1.12 H Estimated GFR/1.73 m2 67 BUN/Creatinine Ratio 17.9 Glucose Level 115 H Hemoglobin A1c 6.8 H Calcium Level 8.6 Magnesium Level 2.2 Troponin I High Sensitivity 26 26 22 Pro-B-Type Natriuretic Peptide 1185 H Albumin 3.7 Chemistry Comments Troponin I High Sens Percent Delta 0 15 Troponin I Hi Sens Absolute Change 0 -4 EKG/XRAY/CT/US/VASC/MRI Chest X-Ray : Additional Comments I personally interpreted the x-ray, and it shows: An enlarged heart with pulmonary edema, no focal consolidation Consults/PCP Consults/PCP : Additional Comment Consult: I spoke to the internal medicine service, for admission in the hospital Medical Decision Making Additional information obtaine: family Findings Family provides much of his history Heart Score: 5 Differential Dx:Considerations: Include: asthma, bronchitis, cardiogenic shock, CHF, COPD, dysrhythmia, myocardial infarction, pneumonia, respiratory failure, upper resp. infection Additional Infomation The patient presents with increasing shortness of breath and edema. His history and exam seem consistent with a CHF exacerbation. He has no significant wheezing to suggest COPD exacerbation. He has no fever other infectious sym ptoms to suggest viral syndrome or pneumonia. He does have mild hypoxia requiring oxygen. He will be given IV Lasix and admitted to the medicine service for further treatment. Departure Impression: Primary Impression: CHF exacerbation Additional Impression: Acute hypoxic respiratory failure Referrals: NO PRIMARY CARE PROVIDER (PCP) Signature Scribe Signature: 6 Attestation: Scribed for Emergency,Department by Jeffrey Vickers NP . 05/19/25 15:55 JEFFREY MOSER NP May 19, 2025 15:56 SAJI DUMAS MD May 19, 2025 18:49
[2025-05-19 16:30] LABS: MEAN PLATELET VOLUME 7.5 FL (7.4-10.4); RED CELL DISTRIBUTION WIDTH 15.2 % (11.5-14.5)
--- NOTE | 2025-05-19 16:35 | RADIOLOGY REPORT ---
CHEST RADIOGRAPH Indication: CP Technique: DI CHEST,SINGLE VIEW COMPARISON: 11/04/2019 FINDINGS: Left chest dual lead cardiac pacing device. The cardiac silhouette is enlarged. The lungs demonstrate bilateral patchy airspace opacities. The pulmonary vasculature is prominent. Small bilateral pleural effusions. There is no pneumothorax. IMPRESSION: As above
[2025-05-19 16:51] LABS: CREATININE 1.12 MG/DL (0.60-1.10); PRO BRAIN NATRIURETIC PEPTIDE 1185 PG/ML (0-125); TOTAL CARBON DIOXIDE 33.2 MMOL/L (24-32); eCRCL 77 ML/MIN; eGFR 67 ML/MIN
[2025-05-19 19:06] LABS: INR 3.3 INR
[2025-05-19] MEDS: furosemide 10 MG/1 ML 10ml inj IV ONE (19:10)
[2025-05-19] MEDS ORDERED: potassium Cl 40MEQ/1/2NS 520ml 520 ML IV PRN (19:25)
[2025-05-19] MEDS ORDERED: mag hydrox/Alum hydrox/simeth 30ml oral suspension PO PRN (19:25)
[2025-05-19] MEDS ORDERED: potassium Cl 20 mEq SR tablet PO PRN (19:25)
[2025-05-19] MEDS ORDERED: magnesium sulf-water 2g/50mL 50 ML IV PRN (19:25)
[2025-05-19] MEDS ORDERED: ondansetron/PF 4mg/2ml inj IV PRN (19:25)
[2025-05-19] MEDS ORDERED: magnesium sulf-water 4G/100mL 100 ML IV PRN (19:25)
[2025-05-19] MEDS ORDERED: magnesium Cl slow-release 64mg tablet PO PRN (19:25)
[2025-05-19] MEDS ORDERED: LEVO75TA7 PO (19:29)
[2025-05-19] MEDS ORDERED: POTA-366 PO (19:29)
[2025-05-19] MEDS ORDERED: CHOL-4 PO (19:29)
[2025-05-19] MEDS ORDERED: AMLO-708 PO (19:29)
[2025-05-19] MEDS ORDERED: POTA-208 PO (19:29)
[2025-05-19] MEDS ORDERED: FURO-149 PO ×2 (19:29)
[2025-05-19] MEDS ORDERED: MAGN400C PO (19:30)
[2025-05-19] MEDS: K and/or MAG REPLACEMENT MC SCH (20:00)
[2025-05-19] MEDS: docusate sod 100mg capsule PO SCH (20:00)
--- NOTE | 2025-05-19 20:35 | HISTORY AND PHYSICAL-Residence ---
History & Physical Providers to CC Resident Creating Document: ИВАН CAT, RES ~ History of Present Illness Primary Medical Doctor: JERAD Reason for Admit\Complaint: CHF exacerbation History of Present Illness This is a 59-year-old male with history of CHF with preserved ejection fraction, atrial fibrillation on warfarin, sleep apnea, sick sinus syndrome s/p pacemaker, hypertension, hyperlipidemia, hypothyroidism, type 2 diabetes mellitus came to the ER with a chief complaint of increasing shortness of breadth and leg swellings since last three weeks. He contacted his airplane cleaner who recommended to take double the dose of Lasix, so increased his Lasix from 40 mg daily to 40 b.i.d. but did not see any improvement in his SOB or increasing urine output. He usually sleeps in a recliner, has been having more SOB on lying down. This evening his checked his oxygen levels and it was 80 which made him come to the ER. He denies any chest pain, palpitations, lightheadedness, dizziness, episodes of passing out. He also denies fever, nasal congestion, cough. No recent travel history and no sick contacts. He does not use oxygen at home. His airplane cleaner is Dr. Timmons. Allergies: Coded Allergies: No Known Allergies (Unverified , 05/19/25) Home Medications Home Medications Active Reported Magnesium (Magnesium Oxide) 400 Mg Magnesium Capsule 1 Cap PO DAILY 30 Days Vitamin D3 (Cholecalciferol (Vitamin D3)) 250 Mcg (12008 Unit) Capsule 1 Cap PO DAILY 30 Days Potassium Chloride 20 Meq Tab.prt.sr 1 Tab PO PRN 30 Days Lasix (Furosemide) 40 Mg Tablet 1 Tab PO PRN 30 Days Amlodipine Besylate 10 Mg Tablet 1 Tab PO DAILY 30 Days Potassium Chloride 20 Meq Tablet.er 1 Tab PO DAILY 30 Days Levothyroxine Sodium 75 Mcg Tablet 1 Tab PO DAILY 30 Days Lasix (Furosemide) 40 Mg Tablet 1 Tab PO DAILY 30 Days Metformin HCl 500 Mg Tablet 1 Tab PO Atorvastatin Calcium 40 Mg Tablet 1 Tab PO HS Warfarin Sodium 10 Mg Tablet 1 Tab PO DAILY Warfarin Sodium 2 Mg Tablet 1 Tab PO DAILY Tadalafil 5 Mg Tablet 1 Tab PO DAILY Past Medical History Past Medical History Heart failure with preserved ejection fraction Atrial fibrillation, on Coumadin Sleep apnea, not on CPAP Type 2 diabetes mellitus Hypertension Hyperlipidemia Hypothyroidism Patient was previously diagnosed with hemochromatosis, was having phlebotomies but later it was decided that he did not have hemochromatosis, last phlebotomy was one and half year ago Past Surgical History Surgical History Comment Pacemaker placement one year ago, have some issues with the lead of the pacemaker which Dr. 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 Timmons Smoking: Chew Alcohol Use: Sober Drug Use: None Lives with: Spouse Lives In: Home Occupation: employed [employer] All Other Systems: Reviewed and Negative Constitutional: Denies: no symptoms reported, see HPI, chills, diaphoresis, fever, malaise, weakness, other Eyes: Denies: no symptoms reported, see HPI, pain, discharge, blurred vision, double vision, itching, photophobia, redness, tearing, other ENT: Denies: no symptoms reported, see HPI, ear pain, ear bleeding, ear discharge, hearing loss, ear ringing, nose pain, nose bleeding, nose congestion, nose discharge, throat pain, throat swelling, voice change, mouth pain, mouth bleeding, mouth swelling, other Respiratory: Reports: shortness of breath, SOB with exertion, SOB at rest Cardiovascular: Denies: chest pain Gastrointestinal: Denies: no symptoms reported, see HPI, abdomen distended, abdominal pain, nausea, vomiting, diarrhea, constipated, melena, hematemesis, hematochezia, rectal bleeding, rectal pain, dysphagia, poor appetite, poor fluid intake, other Genitourinary: Denies: no symptoms reported, see HPI, burning, discharge, dysuria, frequency, flank pain, hematuria, incontinence, pain, decreased urine output, urgency, other Male Genitalia: Denies: no symptoms reported, see HPI, penile discharge, penile sore, testicular pain, testicular swelling, other Neurological: Denies: no symptoms reported, see HPI, speech problem, headache, dizziness, fainting, tingling, left sided numbness, right sided numbness, left sided weakness, right sided weakness, problems walking, unable to move lower ext, unable to move upper ext, petit mal seizures, tonic-clonic seizures, cognitive dysfunction, other Exam Vitals: Vital Signs Date Time Temp Pulse Resp B/P (MAP) Pulse Ox O2 Delivery O2 Flow Rate FiO2 05/19/25 19:22 73 18 150/77 (101) 98 3.0 05/19/25 18:07 Nasal Cannula* 32 05/19/25 15:43 97.6 General: Alert, oriented, obese male not in acute distress Head: Normocephalic with an atraumatic Eyes: Pupils- 3mm, reacting to light, conjunctiva- anicteric Nose and throat: No polyps, septum- normal, no mucosal ulcers Neck: Supple, no lymphadenopathy, no carotid bruit Respiratory: No use of accessory muscles of respiration, bilateral basal crackles Cardiac: S1-S2 heard, rhythm regular, no gallop/murmur Abdomen: non distended, no tenderness, no organomegaly, bowel sounds - heard Extremities: no clubbing, no deformities, peripheral pulses - 2+, chronic lymphedema, stasis dermatitis, lipodermatosclerosis Skin: warm and dry, no rash, no purpura Neuro: No focal deficit, gross cranial nerve exam - normal Diagnostic Data Last Recorded Lab Results: 05/19/25 1618 05/19/25 1618 Diagnostic Data: Laboratory Tests Test 05/19/25 16:18 Prothrombin Time 30.4 SECONDS (9.0-12.0) H INR International Normalized Ratio 3.3 INR Coagulation Comments Advance Care Planning Advanced Care plannin - 30 Minutes (I spent 17 minutes in discussing various resuscitative measures, the patient chose to be full code.) Additional Plan Assessment This is a 59-year-old male with history of CHF with preserved ejection fraction, atrial fibrillation on warfarin, sleep apnea, sick sinus syndrome s/p pacemaker, hypertension, hyperlipidemia, hypothyroidism, type 2 diabetes mellitus came to the ER with a chief complaint of increasing shortness of breadth and leg swellings since last three weeks. Patient is being admitted for acute CHF exacerbation. Plan Acute hypoxemic respiratory failure Acute exacerbation of chronic CHF with preserved ejection fraction ACC stage C, NYHA stage IV Currently on 3 L of oxygen with nasal cannula, not on oxygen at baseline Bilateral basal crackles heard. ProBNP 1185 Chest x-ray showed small bilateral pleural effusions at pulmonary congestion. Echo on 11/26 showed an ejection fraction of 55-60%, PA pressure 50, moderately to severely dilated right ventricle Patient's home medication include Lasix 40 mg b.i.d. One dose of Lasix 80 mg given in the ER, started on Lasix 40 b.i.d. Did not start Aldactone as patient has a hyperkalemia. Start GDM T, Aldactone and Jardiance. Sodium restricted diet and fluid restriction< 1.2 L per day Strict I&Os Daily weight Atrial fibrillation, Abhi Vasc score 3 Sick sinus syndrome s/p pacemaker EKG shows AV paced rhythm Warfarin pharmacy to dose Hyperkalemia Potassium is 5.2 Kidney function is normal, creatinine 1.12 One dose of Kayexalate ordered. Sleep apnea Echo showed signs of right heart strain Patient does not use CPAP at home Previously did go to sleep study but had to be out of the pocket he ended up not getting a CPAP Advised to get a CPAP. RT evaluation requested Hypertension Blood pressure 150/77 Continued patient's home medication amlodipine Type 2 diabetes mellitus A1c 6.8 Started on Lantus 20 units and moderate protocol Hyperlipidemia Lipid panel ordered Continued patient's home medication atorvastatin 40 mg Hypothyroidism Continued patient's home medication levothyroxine. Severe obesity BMI 55.4 Code status: Full code DVT prophylaxis: Warfarin Diet: Sodium restricted diet, fluid restriction Иван cat M.D PGY2 Patient evaluated using HIPPA compliant AV device Agree with plane as discussed with the resident Sascha Burger MD Date of Service: May 19, 2025 Billing Provider: SASCHA BURGER MD, PRAVAHIKA, RES May 19, 2025 20:35 SASCHA BURGER MD May 20, 2025 03:03
[2025-05-19] MEDS ORDERED: glucagon, human recombinant 1mg kit SUBCUT PRN (21:05)
[2025-05-19] MEDS ORDERED: DEXTROSE 15 GM of carb/4 tabs (each vial/BOTTLE has 4 tablets) PO PRN ×2 (21:05)
[2025-05-19] MEDS ORDERED: dextrose 50%-water 50ml dispensing syringe IV PRN ×2 (21:05)
[2025-05-19] MEDS: sodium polystyrene sulfonate 15gm/60ml oral suspension PO ONE (21:34)
[2025-05-20] VITALS (18 sets, daily range): BP systolic 121–167; BP diastolic 70–89; PULSE 62–80; RESP 12–20; TEMP 97.4–98.3; O2SAT 92–97
[2025-05-20 02:25] LABS: MEAN PLATELET VOLUME 7.3 FL (7.4-10.4); RED CELL DISTRIBUTION WIDTH 15.1 % (11.5-14.5)
[2025-05-20 02:33] LABS: INR 3.0 INR
[2025-05-20 02:40] LABS: CHOL/HDL RATIO 4.0 (0.00-4.99); CREATININE 1.06 MG/DL (0.60-1.10); LDL CHOLESTEROL 54 MG/DL (50-100); TOTAL CARBON DIOXIDE 34.3 MMOL/L (24-32); eCRCL 81 ML/MIN; eGFR 71 ML/MIN
[2025-05-20] MEDS: INSULIN LISPRO 100 UNIT/ML INSULN.PEN MULTI-DOSE SQ SCH (07:00)
[2025-05-20] MEDS ORDERED: non-formulary drug (Tadalafil 1 TAB) PO SCH (08:00)
[2025-05-20] MEDS ORDERED: furosemide 10 MG/1 ML 10ml inj IV SCH (08:00)
[2025-05-20] MEDS: levoTHYROXINE 75mcg tablet PO SCH (08:34)
[2025-05-20] MEDS: furosemide inj 100 MG in normal saline 100ml IV soln 90 ML IV SCH ×2 (14:02→17:35)
--- NOTE | 2025-05-20 17:42 | PROGRESS NOTE- Residence ---
Progress Note - Resident Providers to CC Resident Creating Document: TIMO MEDINA RES ~ Antibiotic Timeout Antibiotic Ordered?: Yes Subjective Patient was seen and examined on bedside, reports her breathing is improved. He also said he takes warfarin at home for atrial fibrillation. Objective Vital Signs Date Time Temp Pulse Resp B/P (MAP) Pulse Ox O2 Delivery O2 Flow Rate FiO2 05/20/25 17:17 67 17 97 Nasal Cannula* 5 40 05/20/25 17:00 145/73 (97) 05/20/25 15:00 97.4 Result Diagram: 05/21/25 0236 05/21/25 0526 Alert, oriented, obese male not in acute distress Head: Normocephalic with an atraumatic Eyes: Pupils- 3mm, reacting to light, conjunctiva- anicteric Nose and throat: No polyps, septum- normal, no mucosal ulcers Neck: Supple, no lymphadenopathy, no carotid bruit Respiratory: No use of accessory muscles of respiration, bilateral basal crackles. Cardiac: S1-S2 heard, iiregular rhythm regular,heart rate normal, no gallop/murmur Abdomen: non distended, no tenderness, no organomegaly, bowel sounds - heard Extremities: no clubbing, no deformities, peripheral pulses 2+, bilateral swelling of lower extremities. Skin: warm and dry, no rash, no purpura Neuro: No focal deficit, gross cranial nerve exam normal Coagulation Studies Laboratory Tests Test 05/20/25 02:12 Prothrombin Time 27.8 SECONDS (9.0-12.0) H INR International Normalized Ratio 3.0 INR Coagulation Comments Advance Care Planning Advanced Care plannin - 30 Minutes Plan Plan Acute hypoxemic respiratory failure Acute exacerbation of chronic CHF with preserved ejection fraction ACC stage C, NYHA stage IV Currently on 5 L of oxygen with nasal cannula maintaing oxygen satt, not on oxygen at baseline Bilateral basal crackles heard. ProBNP 1185 Chest x-ray showed small bilateral pleural effusions at pulmonary congestion. Echo on 11/26 showed an ejection fraction of 55-60%, PA pressure 50, moderately to severely dilated right ventricle. Follow up with repeat echo Started patient on lasix drip. Sodium restricted diet and fluid restriction< 1.2 L per day Strict I&Os Daily weight Atrial fibrillation, Abhi Vasc score 3 Sick sinus syndrome s/p pacemaker Rate controlled EKG shows AV paced rhythm Warfarin pharmacy to dose. Hyperkalemia resolved Sleep Apnea Started BiPAP At home patient do not use BiPAP/CPAP Hypertension BP 145/73 Continue amlodipine 10 mg Type 2 diabetes mellitus A1c 6.8 Started on Lantus 20 units and moderate protocol Hyperlipidemia Lipid panel ordered Continued patient's home medication atorvastatin 40 mg Hypothyroidism Continued patient's home medication levothyroxine. Severe obesity BMI 55.4 Code status: Full code DVT prophylaxis: Warfarin Diet: Sodium restricted diet, fluid restriction Addendum morbid obesity, bmi 54 Date of Service: May 20, 2025 Billing Provider: TIM MAHONEY MD Common Visit Codes: [id number] INP/OBS CARE(HIGH) TIMO MEDINA, RES May 20, 2025 17:42 TIM MAHONEY MD May 21, 2025 06:39
[2025-05-20] MEDS: insulin glargine (Lantus) pen - multi-dose SQ SCH (20:03)
[2025-05-20 20:48] LABS: CREATININE 1.12 MG/DL (0.60-1.10); PHOSPHORUS 3.6 MG/DL (2.3-4.5); TOTAL CARBON DIOXIDE 36.7 MMOL/L (24-32); eCRCL 77 ML/MIN; eGFR 67 ML/MIN
[2025-05-21] VITALS (25 sets, daily range): BP systolic 109–157; BP diastolic 72–91; PULSE 57–79; RESP 12–20; TEMP 96.9–98.6; O2SAT 94–97
[2025-05-21 02:57] LABS: MEAN PLATELET VOLUME 7.3 FL (7.4-10.4); RED CELL DISTRIBUTION WIDTH 15.2 % (11.5-14.5)
[2025-05-21 03:18] LABS: CREATININE 1.01 MG/DL (0.60-1.10); PHOSPHORUS 3.7 MG/DL (2.3-4.5); PRO BRAIN NATRIURETIC PEPTIDE 924 PG/ML (0-125); TOTAL CARBON DIOXIDE 38.3 MMOL/L (24-32); eCRCL 85 ML/MIN; eGFR 75 ML/MIN
[2025-05-21 06:17] LABS: INR 2.1 INR
[2025-05-21 06:18] LABS: CREATININE 0.94 MG/DL (0.60-1.10); PHOSPHORUS 3.8 MG/DL (2.3-4.5); TOTAL CARBON DIOXIDE 39.6 MMOL/L (24-32); eCRCL 92 ML/MIN; eGFR 82 ML/MIN
[2025-05-21] MEDS: EMPAGLIFLOZIN 10 MG TABLET PO SCH (07:33)
[2025-05-21 11:45] LABS: CREATININE 0.84 MG/DL (0.60-1.10); PHOSPHORUS 3.8 MG/DL (2.3-4.5); TOTAL CARBON DIOXIDE 37.8 MMOL/L (24-32); eCRCL 103 ML/MIN; eGFR > 90 ML/MIN
[2025-05-21 15:17] LABS: CREATININE 0.94 MG/DL (0.60-1.10); PHOSPHORUS 3.4 MG/DL (2.3-4.5); eCRCL 92 ML/MIN; eGFR 82 ML/MIN
[2025-05-21 15:23] LABS: TOTAL CARBON DIOXIDE 40.1 MMOL/L (24-32)
[2025-05-21] MEDS: potassium Cl 20 mEq SR tablet PO PRN (17:11)
--- NOTE | 2025-05-21 17:18 | PROGRESS NOTE- Residence ---
Progress Note - Resident Providers to CC Resident Creating Document: ИВАН GRAVES RES ~ Antibiotic Timeout Antibiotic Ordered?: No Subjective Patient was seen and examined at the bedside. Has a urine output of about 7450ml with Lasix drip. Patient reports feeling much better. We will likely need discharge to LTAC to continue the Lasix drip. Objective Vital Signs Date Time Temp Pulse Resp B/P (MAP) Pulse Ox O2 Delivery O2 Flow Rate FiO2 05/21/25 13:43 67 145/91 (109) 05/21/25 11:00 98.4 13 97 Nasal Cannula 5.0 05/20/25 17:17 40 Result Diagram: 05/22/2521405/22/25214 Alert, oriented, obese male not in acute distress Head: Normocephalic with an atraumatic Eyes: Pupils- 3mm, reacting to light, conjunctiva- anicteric Nose and throat: No polyps, septum- normal, no mucosal ulcers Neck: Supple, no lymphadenopathy, no carotid bruit Respiratory: No use of accessory muscles of respiration, bilateral basal crackles Cardiac: S1-S2 heard, rhythm regular, no gallop/murmur Abdomen: non distended, no tenderness, no organomegaly, bowel sounds - heard Extremities: no clubbing, no deformities, peripheral pulses - 2+, chronic lymphedema, stasis dermatitis, lipodermatosclerosis Skin: warm and dry, no rash, no purpura Neuro: No focal deficit, gross cranial nerve exam - normal Coagulation Studies Laboratory Tests Test 05/21/25 05:26 Prothrombin Time 20.0 SECONDS (9.0-12.0) H INR International Normalized Ratio 2.1 INR Coagulation Comments Plan Plan Assessment This is a 59-year-old male with history of CHF with preserved ejection fraction, atrial fibrillation on warfarin, sleep apnea, sick sinus syndrome s/p pacemaker, hypertension, hyperlipidemia, hypothyroidism, type 2 diabetes mellitus came to the ER with a chief complaint of increasing shortness of breadth and leg swellings since last three weeks. Patient is being admitted for acute CHF exacerbation. Patient has been initiated on Lasix drip, has a urine output of 7450 mL. Plan Acute hypoxemic respiratory failure Acute exacerbation of chronic CHF with preserved ejection fraction ACC stage C, NYHA stage IV Currently on 5 L of oxygen with nasal cannula, not on oxygen at baseline Bilateral basal crackles heard. ProBNP 1185, improved to 924 Chest x-ray showed small bilateral pleural effusions at pulmonary congestion. Echo on 11/26 showed an ejection fraction of 55-60%, PA pressure 50, moderately to severely dilated right ventricle Preliminary Repeat echo shows an ejection fraction of 60-65%, Patient is currently on Lasix drip, has an output of 7450ml On Jardiance 10 mg, started lisinopril 5 mg and Aldactone 25 mg. Sodium restricted diet and fluid restriction< 1.2 L per day Strict I&Os Daily weight Metabolic alkalosis Mild hypokalemia Bicarb of 40.1, potassium 3.4 Likely secondary to Lasix drip. Started on Diamox 250 mg b.i.d. On potassium replacement protocol. Atrial fibrillation, Abhi Vasc score 3 Sick sinus syndrome s/p pacemaker EKG shows AV paced rhythm Warfarin pharmacy to dose Pulmonary hypertension Echo in March showed a PA pressure of 50 Continued patient's home medication tadalafil Hyperkalemia-improved Sleep apnea Echo showed signs of right heart strain Patient does not use CPAP at home Previously did go to sleep study but had to be out of the pocket he ended up not getting a CPAP Advised to get a CPAP. RT evaluation requested Hypertension Discontinued patient's home medication amlodipine and started on lisinopril and Aldactone as the patient also has CHF. Type 2 diabetes mellitus A1c 6.8 Started on Lantus 20 units and moderate protocol Hyperlipidemia Lipid panel showed LDL 50, total cholesterol 91. Continued patient's home medication atorvastatin 40 mg Hypothyroidism Continued patient's home medication levothyroxine. Severe obesity BMI 55.4 Code status: Full code DVT prophylaxis: Warfarin Diet: Sodium restricted diet, fluid restriction Иван graves M.D PGY2 Addendum dc lantus, cont jardiance Date of Service: May 21, 2025 Billing Provider: TIM MAHONEY MD Common Visit Codes: [id number] INP/OBS CARE(HIGH) ИВАН GRAVES, SELWYN May 21, 2025 17:18 TIM MAHONEY MD May 22, 2025 06:20
--- NOTE | 2025-05-21 17:36 | CARDIOLOGY REPORT ---
APPROVED REPORT EXAM: Comprehensive 2D, Doppler, and color-flow Echocardiogram. Patient Location: [address] Blood Pressure: 131/77 mmHg Heart Rate: 70 bpm Rhythm: ATRIAL FIBRILLATION Indications CONGESTIVE HEART FAILURE SHORTNESS OF BREATH DIABETES MELLITUS COPD HYPERTENSION PACEMAKER Airplane Technician: Kyrie Timmons MD Previous echo: 11/04/24 [facility] (EF 55-60%, 2D Dimensions IVSd 1.5 (0.7-1.1cm) LVDd 4.8 cm PWd 1.5 (0.7-1.1cm) IVSs 1.9 (0.8-1.2cm) LVDs 3.0 (2.5-4.0cm) PWs 1.9 (0.8-1.2cm) LVOT Diameter 2.48 (1.8-2.4cm) LVEF(%) 67.0 (>50%) IVC 40.85 mm FS (%) 37.1 % SV 71.2 ml CO 4.6 L/min M-Mode Dimensions Left Atrium(MM) 5.64 (2.5-4.0cm) IVSd 1.66 (0.7-1.1cm) LVDd 5.08 (4.0-5.6cm) Aortic Root 3.42 (2.2-3.7cm) PWd 1.76 (0.7-1.1cm) Aortic Cusp Exc 2.52 (1.5-2.0cm) IVSs 2.01 cm LVDs 3.42 (2.0-3.8cm) FS (%) 33 % PWs 2.16 cm ESV(Teich) 48.2 ml LVEF(%) 61 (>50%) Aortic Valve AoV Peak Michael. 181.0 cm/s AoV VTI 30.9 cm AO Peak GR. 13.1 mmHg AO Mean GR. 7 mmHg LVOT VTI 25.49 cm LVOT Peak Michael. 131.0 cm/s RICARDA(VTI)/BSA 3.99 cm2/m2 RICARDA (VTI) 3.99 cm2 AV DI 0.82 % Mitral Valve MV Peak Gr. 7 mmHg MV PHT 68 ms MVA (PHT) 3.24 cm2 MV VMax 134.4 cm/s Tricuspid Valve TR P. Velocity 293 cm/s TR Peak Gr. 34 mmHg LEFT VENTRICLE Normal LV size and function. Moderate concentric hypertrophy. LVEF is 60-65%. RIGHT VENTRICLE RV is normal size and function. ATRIA Left atrium is severely dilated. AORTIC VALVE Trileaflet AV appears mildly sclerotic without stenosis or insufficiency. MITRAL VALVE Mild MV annular calcification without stenosis. Trace regurgitation. TRICUSPID VALVE TV appears structurally normal with trace regurgitation. PULMONIC VALVE Normal PV without stenosis, physiologic insufficiency. GREAT VESSELS The aortic root is normal in size. IVC is dilated at 4.08 cm and collapses less than 50% with inspiration. PERICARDIUM Normal pericardium. No effusion. Other Information Study Quality: Adequate, but technically difficult due to body habitus, patient refusal to lay down in bed. Conclusion Normal LV size and function. Moderate concentric hypertrophy. LVEF is 60-65%. RV is normal size and function. Left atrium is severely dilated. Trileaflet AV appears mildly sclerotic without stenosis or insufficiency. Mild MV annular calcification without stenosis. Trace regurgitation. TV appears structurally normal with trace regurgitation. Normal pericardium. No effusion.
[2025-05-21] MEDS: warfarin 5mg tablet PO ONE (20:29)
[2025-05-21 20:30] LABS: CREATININE 1.10 MG/DL (0.60-1.10); PHOSPHORUS 3.5 MG/DL (2.3-4.5); TOTAL CARBON DIOXIDE 39.5 MMOL/L (24-32); eCRCL 78 ML/MIN; eGFR 68 ML/MIN
--- NOTE | 2025-05-21 23:11 | ELECTROCARDIOGRAPH REPORT ---
[facility] Test Date: 2025-05-21 Test Time: 23:08:37 Pat Name: RENUKA DAVILA Department: [facility] 3S Patient ID: [facility]-[id number] Room: [place] [address] B Gender: M Health Unit Coordinator: : 1965 Requested By: HUMAIRA RICE Order Number: [id number] Reading MD: Dr. NICOLE Herrera Measurements Intervals [place] Rate: 52 P: 0 ME: 234 QRS: 92 QRSD: 120 T: 44 QT: 446 QTc: 415 Interpretive Statements atrially paced rhythm. Some inappropriate pacer spikes seen. Atrial premature complexes in couplets Prolonged ME interval RBBB and LPFB Probable anteroseptal infarct, old Electronically Signed On 05-22-2025 17:22:[address] NICOLE Herrera Please click the below link to view image of tracing.
[2025-05-22] VITALS (21 sets, daily range): BP systolic 94–163; BP diastolic 53–88; PULSE 56–72; RESP 11–18; TEMP 96.9–98.3; O2SAT 93–97
--- NOTE | 2025-05-22 01:48 | PROGRESS NOTE ---
Clinical Note Clinical Note Progress Note: The patient has trifascicular block on EKG and relies on a permanent pacemaker for rhythm management sick sinus syndrome. Today's EKG and telemetry demonstrated pacing spikes, but with inconsistent capture, some beats are fully paced, while others were not, which adjusted that the pacemaker is intermittently failing to capture the rhythm. Due to concerns for potential lead issues pacemaker interrogation was requested. The pacemaker interrogation from May 22, 2025, highlighted an alert for a high ventricular rate, which may indicate the presence of atrial fibrillation (AFib). The pacemaker interrogation also shows that the device's battery is at 64% capacity, with approximately 1.1 years of battery life remaining. The capture thresholds and lead impedance values are within normal ranges, but the alerts for high ventricular rate and atrial noise reversion indicate that the pacemaker detected abnormal rhythm episodes. These alerts may suggest arrhythmias, such as AFib, or inappropriate pacing, which could with the cause for inconsistent pacing. Given these findings, recommended to continue telemetry monitoring, and ordered a chest X-ray to assess the lead position and rule out any mechanical issues. Chest x-ray showed: Stable cardiac device positioning. If the inconsistent pacing and capture threshold continues to rise, please consult Cardiology for further management. Patient may need reprogramming of the device. This patient has a history of AFib, please adjust rate control strategy and pacemaker settings. Please consult Cardiology for follow up on interrogation results. HUMAIRA RICE, RES May 22, 2025 01:48
[2025-05-22 02:33] LABS: MEAN PLATELET VOLUME 7.3 FL (7.4-10.4); RED CELL DISTRIBUTION WIDTH 14.9 % (11.5-14.5)
--- NOTE | 2025-05-22 02:34 | RADIOLOGY REPORT ---
CHEST RADIOGRAPH Indication: Pacemaker lead changes Technique: 1 view Comparison: DI CHEST,SINGLE VIEW on DOS: 05/19/25, DI CHEST,SINGLE VIEW on DOS: 11/03/24, XR CHEST 1 VIEW on DOS: 11/03/24, DI CHEST,SINGLE VIEW on DOS: 09/04/23 FINDINGS: Lines and Tubes: Unchanged left implanted cardiac device positioning. Lungs/Pleura: Unchanged. Cardiomediastinum: Unchanged. Other: Unchanged osseous structures. IMPRESSION: No significant change from 3 days prior. Extensive bilateral perihilar interstitial opacities with cardiomegaly, likely representing heart failure. Stable cardiac device positioning.
[2025-05-22 02:43] LABS: INR 1.8 INR
[2025-05-22 02:44] LABS: CREATININE 0.99 MG/DL (0.60-1.10); PHOSPHORUS 3.6 MG/DL (2.3-4.5); eCRCL 87 ML/MIN; eGFR 77 ML/MIN
[2025-05-22 02:50] LABS: TOTAL CARBON DIOXIDE 41.4 MMOL/L (24-32)
[2025-05-22] MEDS: potassium Cl 20 mEq SR tablet PO SCH (07:20)
[2025-05-22] MEDS: multivitamins, therapeutics tablet PO SCH (08:13)
[2025-05-22 08:14] LABS: CREATININE 1.00 MG/DL (0.60-1.10); PHOSPHORUS 3.4 MG/DL (2.3-4.5); TOTAL CARBON DIOXIDE 37.6 MMOL/L (24-32); eCRCL 86 ML/MIN; eGFR 76 ML/MIN
[2025-05-22 14:41] LABS: CREATININE 0.91 MG/DL (0.60-1.10); PHOSPHORUS 3.5 MG/DL (2.3-4.5); TOTAL CARBON DIOXIDE 37.6 MMOL/L (24-32); eCRCL 95 ML/MIN; eGFR 85 ML/MIN
--- NOTE | 2025-05-22 18:15 | PROGRESS NOTE- Residence ---
Progress Note - Resident Providers to CC Resident Creating Document: ELVIS COOPER RES ~ Antibiotic Timeout Antibiotic Ordered?: No Subjective Patient was seen and examined at the bedside. Has a urine output of about 48009gv with Lasix drip. Patient reports improvement in leg swelling, abdominal swelling and breathing. Last night patient had an episode of telemetry demonstrating pacing spikes but with inconsistent capture. Pacemaker interrogation was done, showed 64% battery capacity and 1.1 years of battery life. The capture thresholds and lead impedance values are within normal range. High ventricular rate indicated the pacemaker detected abnormal rhythm episode. Consulted Dr. Hendrickson's office, recommended follow up in the clinic. High output in persistent with AFib. Patient will need a follow up in 1-[address] Hendrickson's office Objective Vital Signs Date Time Temp Pulse Resp B/P (MAP) Pulse Ox O2 Delivery O2 Flow Rate FiO2 05/22/25 16:00 63 119/57 (77) 05/22/25 15:00 98.3 16 95 Nasal Cannula 5.0 05/22/25 08:00 48 Result Diagram: 05/22/25 0215 05/22/25 1355 Alert, oriented, obese male not in acute distress Head: Normocephalic with an atraumatic Eyes: Pupils- 3mm, reacting to light, conjunctiva- anicteric Nose and throat: No polyps, septum- normal, no mucosal ulcers Neck: Supple, no lymphadenopathy, no carotid bruit Respiratory: No use of accessory muscles of respiration, bilateral basal crackles Cardiac: S1-S2 heard, rhythm regular, no gallop/murmur Abdomen: non distended, no tenderness, no organomegaly, bowel sounds - heard Extremities: no clubbing, no deformities, peripheral pulses - 2+, chronic lymphedema, stasis dermatitis, lipodermatosclerosis Skin: warm and dry, no rash, no purpura Neuro: No focal deficit, gross cranial nerve exam - normal Coagulation Studies Laboratory Tests Test 05/22/25 02:15 Prothrombin Time 17.3 SECONDS (9.0-12.0) H INR International Normalized Ratio 1.8 INR Coagulation Comments Plan Plan Assessment This is a 59-year-old male with history of CHF with preserved ejection fraction, atrial fibrillation on warfarin, sleep apnea, sick sinus syndrome s/p pacemaker, hypertension, hyperlipidemia, hypothyroidism, type 2 diabetes mellitus came to the ER with a chief complaint of increasing shortness of breadth and leg swellings since last three weeks. Patient is being admitted for acute CHF exacerbation. Patient has been initiated on Lasix drip, has a urine output of 7450 mL. Plan Acute hypoxemic respiratory failure Acute exacerbation of chronic CHF with preserved ejection fraction ACC stage C, NYHA stage IV Currently on 5 L of oxygen with nasal cannula, not on oxygen at baseline Bilateral basal crackles heard. ProBNP 1185, improved to 924 Chest x-ray showed small bilateral pleural effusions at pulmonary congestion. Echo on 11/26 showed an ejection fraction of 55-60%, PA pressure 50, moderately to severely dilated right ventricle Preliminary Repeat echo shows an ejection fraction of 60-65%, Patient is currently on Lasix drip, [place] [address] mL in last 24 hours, 7500 mL yesterday. On Jardiance 10 mg, lisinopril 5 mg and Aldactone 25 mg. Sodium restricted diet and fluid restriction< 1.2 L per day Strict I&Os Daily weight Metabolic alkalosis Mild hypokalemia Bicarb of 37.6, potassium 3.7 Likely secondary to Lasix drip. Started on Diamox 250 mg t.i.d. On potassium replacement protocol. Atrial fibrillation, Abhi Vasc score 3 Sick sinus syndrome s/p pacemaker EKG shows AV paced rhythm Last night patient had an episode of telemetry demonstrating pacing spikes but with inconsistent capture. Pacemaker interrogation was done, showed 64% battery capacity and 1.1 years of battery life. The capture thresholds and lead impedance values are within normal range. High ventricular rate indicated the pacemaker detected abnormal rhythm episode. Consulted Dr. Hendrickson's office, recommended follow up in the clinic. High output in persistent with AFib. Patient will need a follow up in 1-[address] Hendrickson's office Warfarin pharmacy to dose Pulmonary hypertension Echo in March showed a PA pressure of 50 Continued patient's home medication tadalafil Hyperkalemia-improved Sleep apnea Echo showed signs of right heart strain Patient does not use CPAP at home Previously did go to sleep study but had to be out of the pocket he ended up not getting a CPAP Advised to get a CPAP. RT evaluation requested Hypertension Discontinued patient's home medication amlodipine and started on lisinopril and Aldactone as the patient also has CHF. Type 2 diabetes mellitus A1c 6.8 Discontinued Lantus and started on Jardiance. Hyperlipidemia Lipid panel showed LDL 50, total cholesterol 91. Continued patient's home medication atorvastatin 40 mg Hypothyroidism Continued patient's home medication levothyroxine. Severe obesity BMI 55.4 Code status: Full code DVT prophylaxis: Warfarin Diet: Sodium restricted diet, fluid restriction Disposition: Possible discharge to [facility] TCU to continue IV Lasix. Elvis Cooper M.D PGY2 Date of Service: May 22, 2025 Billing Provider: TIM MAHONEY MD Common Visit Codes: [id number] INP/OBS CARE(HIGH) ELVIS COOPER, RES May 22, 2025 18:15 TIM MAHONEY MD May 23, 2025 07:25
[2025-05-22 20:10] LABS: CREATININE 1.09 MG/DL (0.60-1.10); PHOSPHORUS 3.3 MG/DL (2.3-4.5); TOTAL CARBON DIOXIDE 37.6 MMOL/L (24-32); eCRCL 79 ML/MIN; eGFR 69 ML/MIN
[2025-05-22] MEDS: magnesium hydroxide 30ml (MOM) UD suspension PO PRN (20:39)
[2025-05-23] VITALS (15 sets, daily range): BP systolic 106–136; BP diastolic 54–86; PULSE 57–67; RESP 13–22; TEMP 97.2–98.1; O2SAT 92–97
[2025-05-23 02:28] LABS: MEAN PLATELET VOLUME 7.1 FL (7.4-10.4); RED CELL DISTRIBUTION WIDTH 14.9 % (11.5-14.5)
[2025-05-23 02:58] LABS: INR 1.6 INR
[2025-05-23 03:03] LABS: CREATININE 0.95 MG/DL (0.60-1.10); PHOSPHORUS 2.8 MG/DL (2.3-4.5); TOTAL CARBON DIOXIDE 34.2 MMOL/L (24-32); eCRCL 91 ML/MIN; eGFR 81 ML/MIN
[2025-05-23 09:12] LABS: CREATININE 0.99 MG/DL (0.60-1.10); PHOSPHORUS 2.6 MG/DL (2.3-4.5); TOTAL CARBON DIOXIDE 31.3 MMOL/L (24-32); eCRCL 87 ML/MIN; eGFR 77 ML/MIN
[2025-05-23 14:32] LABS: CREATININE 1.01 MG/DL (0.60-1.10); PHOSPHORUS 2.9 MG/DL (2.3-4.5); TOTAL CARBON DIOXIDE 31.7 MMOL/L (24-32); eCRCL 85 ML/MIN; eGFR 75 ML/MIN
--- NOTE | 2025-05-23 15:13 | PROGRESS NOTE- Residence ---
Progress Note - Resident Providers to CC Resident Creating Document: ELVIS COOPER RES ~ Antibiotic Timeout Antibiotic Ordered?: No Subjective Patient was seen and examined at the bedside. Has a urine output of about 6950ml with Lasix drip. Continues to feel better. Possible discharge to [facility]CU for IV Lasix Objective Vital Signs Date Time Temp Pulse Resp B/P (MAP) Pulse Ox O2 Delivery O2 Flow Rate FiO2 05/23/25 11:00 97.6 60 20 114/54 (74) 95 Room Air 05/22/25 15:00 5.0 05/22/25 08:00 48 Result Diagram: 05/23/25 0220 05/23/25 1404 Alert, oriented, obese male not in acute distress Head: Normocephalic with an atraumatic Eyes: Pupils- 3mm, reacting to light, conjunctiva- anicteric Nose and throat: No polyps, septum- normal, no mucosal ulcers Neck: Supple, no lymphadenopathy, no carotid bruit Respiratory: No use of accessory muscles of respiration, bilateral basal crackles Cardiac: S1-S2 heard, rhythm regular, no gallop/murmur Abdomen: non distended, no tenderness, no organomegaly, bowel sounds - heard Extremities: no clubbing, no deformities, peripheral pulses - 2+, chronic lymphedema, stasis dermatitis, lipodermatosclerosis Skin: warm and dry, no rash, no purpura Neuro: No focal deficit, gross cranial nerve exam - normal Coagulation Studies Laboratory Tests Test 05/23/25 02:20 Prothrombin Time 15.8 SECONDS (9.0-12.0) H INR International Normalized Ratio 1.6 INR Coagulation Comments Plan Plan Assessment This is a 59-year-old male with history of CHF with preserved ejection fraction, atrial fibrillation on warfarin, sleep apnea, sick sinus syndrome s/p pacemaker, hypertension, hyperlipidemia, hypothyroidism, type 2 diabetes mellitus came to the ER with a chief complaint of increasing shortness of breadth and leg swellings since last three weeks. Patient is being admitted for acute CHF exacerbation. Patient has been initiated on Lasix drip, has a urine output of 7450 mL on 1st day,[id number] on 2nd day,6950ml on 3rd day. Plan Acute hypoxemic respiratory failure Acute exacerbation of chronic CHF with preserved ejection fraction ACC stage C, NYHA stage IV Currently on room air Bilateral basal crackles improved ProBNP 1185, improved to 924 Chest x-ray showed small bilateral pleural effusions at pulmonary congestion. Echo showed an ejection fraction of 60-65%, normal right ventricle size, severely dilated left atrium. Patient is currently on Lasix drip, has an output of 6950 mL in the last 24 hours On Jardiance 10 mg, lisinopril 5 mg and Aldactone 25 mg. Sodium restricted diet and fluid restriction< 1.2 L per day Strict I&Os Lost about 12.5 kg is in the last two days Metabolic alkalosis -improved Mild hypokalemia-improved Bicarb of 31.7, potassium 3.5 Likely secondary to Lasix drip. on Diamox 250 mg t.i.d. On potassium replacement protocol. Atrial fibrillation, Abhi Vasc score 3 Sick sinus syndrome s/p pacemaker EKG shows AV paced rhythm patient had an episode of telemetry demonstrating pacing spikes but with inconsistent capture. Pacemaker interrogation was done, showed 64% battery capacity and 1.1 years of battery life. The capture thresholds and lead impedance values are within normal range. High ventricular rate indicated the pacemaker detected abnormal rhythm episode. Consulted Dr. Hendrickson's office, recommended follow up in the clinic. High output in persistent with AFib. Patient will need a follow up in 1-[address] Hendrickson's office Warfarin pharmacy to dose Pulmonary hypertension Echo in March showed a PA pressure of 50 Continued patient's home medication tadalafil Hyperkalemia-improved Sleep apnea Echo showed signs of right heart strain Patient does not use CPAP at home Previously did go to sleep study but had to be out of the pocket he ended up not getting a CPAP Advised to get a CPAP. RT evaluation requested Hypertension Discontinued patient's home medication amlodipine and started on lisinopril and Aldactone as the patient also has CHF. Type 2 diabetes mellitus A1c 6.8 Discontinued Lantus and started on Jardiance. Hyperlipidemia Lipid panel showed LDL 50, total cholesterol 91. Continued patient's home medication atorvastatin 40 mg Hypothyroidism Continued patient's home medication levothyroxine. Severe obesity BMI 50.8 Code status: Full code DVT prophylaxis: Warfarin Diet: Sodium restricted diet, fluid restriction Disposition: Possible discharge to [facility] TCU to continue IV Lasix. Elvis Cooper M.D PGY2 Date of Service: May 23, 2025 Billing Provider: TIM MAHONEY MD Common Visit Codes: [id number] INP/OBS CARE(HIGH) ELVIS COOPER, RES May 23, 2025 15:13 TIM MAHONEY MD May 24, 2025 07:58
[2025-05-23 20:49] LABS: CREATININE 1.06 MG/DL (0.60-1.10); PHOSPHORUS 2.9 MG/DL (2.3-4.5); TOTAL CARBON DIOXIDE 32.0 MMOL/L (24-32); eCRCL 81 ML/MIN; eGFR 71 ML/MIN
[2025-05-23] MEDS ORDERED: potassium Cl 40MEQ/1/2NS 520ml 520 ML IV PRN (22:30)
[2025-05-23] MEDS ORDERED: magnesium sulf-water 2g/50mL 50 ML IV PRN (22:30)
[2025-05-23] MEDS ORDERED: potassium Cl 20 mEq SR tablet PO PRN (22:30)
[2025-05-23] MEDS ORDERED: magnesium sulf-water 4G/100mL 100 ML IV PRN (22:30)
[2025-05-23] MEDS ORDERED: magnesium Cl slow-release 64mg tablet PO PRN (22:30)
[2025-05-23] MEDS: potassium Cl 20 mEq SR tablet PO PRN (22:32)
[2025-05-24] VITALS (23 sets, daily range): BP systolic 109–151; BP diastolic 64–88; PULSE 57–72; RESP 14–25; TEMP 97.3–98.4; O2SAT 92–95
[2025-05-24] MEDS: PERFLUTREN PROTEIN-A MICROSPHR (Optison) 0.22 MG/ML 3ML VIAL IV ONE (01:28)
[2025-05-24 03:15] LABS: MEAN PLATELET VOLUME 7.3 FL (7.4-10.4); RED CELL DISTRIBUTION WIDTH 15.0 % (11.5-14.5)
[2025-05-24 03:17] LABS: INR 1.8 INR
[2025-05-24 03:18] LABS: CREATININE 1.03 MG/DL (0.60-1.10); PHOSPHORUS 3.5 MG/DL (2.3-4.5); TOTAL CARBON DIOXIDE 29.2 MMOL/L (24-32); eCRCL 84 ML/MIN; eGFR 74 ML/MIN
[2025-05-24] MEDS: K and/or MAG REPLACEMENT MC SCH (08:00)
--- NOTE | 2025-05-24 15:49 | PROGRESS NOTE ---
Progress Note Cardiology Providers to CC ~ Subjective Subjective The patient seen briefly to discuss his permanent pacemaker. That has high RV lead impedance and battery life with one year. He has been aware of the problem. Presented secondary to shortness for breath and fluid retention. States it is better with Lasix drip. Objective Result Diagram: 05/24/2525405/24/25254 Objective General: Awake, alert, oriented. No apparent distress Neck: Supple. Normal range of motion. No JVD Respiratory: Lungs are clear and diminished to auscultation bilaterally. No respiratory distress. Chest: Normal shape and size. No accessory muscle use. Cardiovascular: Regular rate and rhythm. S1-S2. No murmur, gallop, rub. Gastrointestinal: Abdomen is soft. Nontender to palpation. Bowel sounds present. Extremities: ++ edema Neurologic: Alert and oriented x4. Nonfocal Psychiatric: Normal mood and affect. Skin: Normal color. Warm and dry. Coagulation Studies Laboratory Tests Test 05/24/25 02:55 Prothrombin Time 17.3 SECONDS (9.0-12.0) H INR International Normalized Ratio 1.8 INR Coagulation Comments Problem\Assessment\Plan Additional Plan Patient presented with shortness for breath and fluid retention. The following is his problem list: Heart failure with preserved ejection fraction Diuresed well on Lasix drip We will need Lasix as an outpatient Atrial fibrillation Sick sinus syndrome status post pacemaker Pacemaker with high RV lead impedance. We will need RV lead revision and battery change out. He is aware. He is now willing to schedule. We will call him to schedule. --Cont oac Discussed with Kyrie Timmons. In agreement with outpatient f/up. Supervising Physician: EDMOND Zendejas NP May 24, 2025 15:49
--- NOTE | 2025-05-24 17:28 | PROGRESS NOTE- Residence ---
Progress Note - Resident Providers to CC Resident Creating Document: ELVIS COOPER RES ~ Antibiotic Timeout Antibiotic Ordered?: No Subjective Patient was seen and examined at the bedside. Has a urine output of about 5230ml with Lasix drip. Continues to feel better. He reports he was able to walk around. Abdomen is much softer and breathing is much better. Objective Vital Signs Date Time Temp Pulse Resp B/P (MAP) Pulse Ox O2 Delivery O2 Flow Rate FiO2 05/24/25 15:13 98.4 72 16 136/72 (93) 94 Room Air 05/22/25 15:00 5.0 05/22/25 08:00 48 Result Diagram: 05/24/2525405/24/25254 Alert, oriented, obese male not in acute distress Head: Normocephalic with an atraumatic Eyes: Pupils- 3mm, reacting to light, conjunctiva- anicteric Nose and throat: No polyps, septum- normal, no mucosal ulcers Neck: Supple, no lymphadenopathy, no carotid bruit Respiratory: No use of accessory muscles of respiration, bilateral basal crackles improved. Cardiac: S1-S2 heard, rhythm regular, no gallop/murmur Abdomen: non distended, no tenderness, no organomegaly, bowel sounds - heard Extremities: no clubbing, no deformities, peripheral pulses - 2+, chronic lymphedema, stasis dermatitis, lipodermatosclerosis, edema improved with wrinkling of the skin Skin: warm and dry, no rash, no purpura Neuro: No focal deficit, gross cranial nerve exam - normal Coagulation Studies Laboratory Tests Test 05/24/25 02:55 Prothrombin Time 17.3 SECONDS (9.0-12.0) H INR International Normalized Ratio 1.8 INR Coagulation Comments Plan Plan Assessment This is a 59-year-old male with history of CHF with preserved ejection fraction, atrial fibrillation on warfarin, sleep apnea, sick sinus syndrome s/p pacemaker, hypertension, hyperlipidemia, hypothyroidism, type 2 diabetes mellitus came to the ER with a chief complaint of increasing shortness of breadth and leg swellings since last three weeks. Patient is being admitted for acute CHF exacerbation. Patient has been initiated on Lasix drip, has a urine output of 7450 mL on 1st day,[id number] on 2nd day,6950ml on 3rd day., 5230 mL on 4th day. Since admission he lost a total of 182.9-164.3 = 18.6 kg Plan Acute hypoxemic respiratory failure Acute exacerbation of chronic CHF with preserved ejection fraction ACC stage C, NYHA stage IV Currently on room air Bilateral basal crackles improved ProBNP 1185, improved to 924 Echo showed an ejection fraction of 60-65%, normal right ventricle size, severely dilated left atrium. Patient is currently on Lasix drip, has an output of 5230 mL in the last 24 hours On Lasix drip, 4th day On Jardiance 10 mg, lisinopril 5 mg and Aldactone 25 mg. Sodium restricted diet and fluid restriction< 1.2 L per day Strict I&Os Lost about 18.6 kg since admission Metabolic alkalosis -improved Mild hypokalemia-improved Bicarb of 31.7, potassium 3.5 Likely secondary to Lasix drip. on Diamox 250 mg t.i.d. On potassium replacement protocol. Atrial fibrillation, Abhi Vasc score 3 Sick sinus syndrome s/p pacemaker EKG shows AV paced rhythm patient had an episode of telemetry demonstrating pacing spikes but with inconsistent capture. Pacemaker interrogation was done, showed 64% battery capacity and 1.1 years of battery life. The capture thresholds and lead impedance values are within normal range. High ventricular rate indicated the pacemaker detected abnormal rhythm episode. Consulted Dr. Hendrickson's office, recommended follow up in the clinic. High output in persistent with AFib. Patient will need a follow up in 1-[address] Hendrickson's office Warfarin pharmacy to dose Pulmonary hypertension Echo in March showed a PA pressure of 50 Continued patient's home medication tadalafil Hyperkalemia-improved Sleep apnea Echo showed signs of right heart strain Patient does not use CPAP at home Previously did go to sleep study but had to be out of the pocket he ended up not getting a CPAP Advised to get a CPAP. RT evaluation requested Hypertension Discontinued patient's home medication amlodipine and started on lisinopril and Aldactone as the patient also has CHF. Type 2 diabetes mellitus A1c 6.8 Discontinued Lantus and started on Jardiance. Hyperlipidemia Lipid panel showed LDL 50, total cholesterol 91. Continued patient's home medication atorvastatin 40 mg Hypothyroidism Continued patient's home medication levothyroxine. Severe obesity BMI 49.1 Code status: Full code DVT prophylaxis: Warfarin Diet: Sodium restricted diet, fluid restriction Disposition: Possible discharge to [facility] TCU to continue IV Lasix. Elvis Cooper M.D PGY2 Date of Service: May 24, 2025 Billing Provider: TIM MAHONEY MD Common Visit Codes: [id number] INP/OBS CARE(HIGH) ELVIS COOPER, RES May 24, 2025 17:28 TIM MAHONEY MD May 25, 2025 06:54
[2025-05-24] MEDS: Ensure Enlive - 237ML PO SCH (18:59)
[2025-05-25] VITALS (18 sets, daily range): BP systolic 107–140; BP diastolic 62–94; PULSE 59–99; RESP 18; TEMP 97.4–97.5; O2SAT 95–97
[2025-05-25 06:34] LABS: INR 2.1 INR
[2025-05-25 06:36] LABS: RED CELL DISTRIBUTION WIDTH 15.2 % (11.5-14.5)
[2025-05-25 06:39] LABS: MEAN PLATELET VOLUME 7.4 FL (7.4-10.4)
[2025-05-25 06:53] LABS: CREATININE 1.15 MG/DL (0.60-1.10); TOTAL CARBON DIOXIDE 30.7 MMOL/L (24-32); eCRCL 75 ML/MIN; eGFR 65 ML/MIN
[2025-05-25] MEDS ORDERED: furosemide 10 MG/1 ML 10ml inj IV SCH (15:25)
--- NOTE | 2025-05-25 18:22 | DISCHARGE SUMMARY-Residence ---
Discharge Summary Providers to CC Resident Creating Document: ADRIANA NOGUERA, RES CC: TIM MAHONEY MD ~ Discharge Summary Admission Diagnosis: CHF EXACERBATION Hospital Course DATE OF ADMISSION: 05/19/25 DATE OF DISCHARGE: 05/25/25 Discharge Diagnosis\Comment: Acute hypoxemic respiratory failure secondary to acute exacerbation of chronic CHF with preserved ejection fraction Metabolic alkalosis, improved Mild hypokalemia, improved AFib Sick sinus syndrome s/p pacemaker Pulmonary hypertension Hyperkalemia, improved Sleep apnea HTN Type 2 DM HLD Hypothyroidism Severe obesity Operations\Procedures: None Consultants: None Complications: None Condition on DC: Stable for transfer Discharge Summary: 59-year-old male with history of CHF with a preserved ejection fraction, AFib on warfarin presented to the ED in view of gradual worsening of shortness of breaths and bilateral lower extremity swelling over the last three weeks. 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 Further evaluation patient was found to have been requiring 3 L of oxygen, chest x-ray showing bilateral pleural effusions with pulmonary congestion and an echo showing an ejection fraction 55-60%. Patient was therefore started on IV Lasix 40 b.i.d.. GDM T was gradually started with Aldactone and Jardiance. Is&Os were being monitored. Patient was not symptomatically comfortable therefore has been started on Lasix drip the next day. Patient's started to diurese very effectively maintaining negative fluid balance. Patient also started to feel comfortable. Gradually over few days, patient started to develop contraction alkalosis in view of Lasix drip which was combative with Diamox 3 times a day. Patient presented some electrolyte abnormalities during the course of the hospital that were managed per protocol. Patient's other medical conditions were managed as per home meds. Patient has a pacemaker that was not working effectively, interrogation was done which reveals requires battery change and RV lead impedance. View of further requirement of IV Lasix patient has been transferred to [facility] as the patient is hemodynamically stable. Physical examination at the time of discharge: General: Alert, awake, oriented, not in acute distress HEENT: PERRLA, no icterus, pallor, lymphadenopathy, carotid bruit Respiratory system: Bilateral vesicular breath sounds heard, bilateral basal crackles (improved) CVS: S1-S2 heard, no murmurs/rubs/gallop GI: Soft, nontender, no organomegaly, no guarding/rigidity, bowel sounds present Neuro: No focal neurological deficits present Mental status exam: alert and consciousness, orientation, memory, speech - Cranial nerve test: Cranial nerves 2-12 intact - Motor system: Nutrition, Tone 3+, Power 5/5, no involuntary movements - Sensory system: Intact - Reflex testing: Biceps, triceps and knee reflexes 2+ - Cerebellar: Normal Extremities: Bilateral 3+ pitting edema that has resolving, chronic lymphedema, status dermatitis, wrinkling of the skin Skin: Warm and dry Discharge medications: Aldactone 25 mg once daily Diamox 250 mg once daily for 15 days IV Lasix 80 mg b.i.d. Jardiance 10 mg once daily Warfarin pharmacy to dose Potassium 20 mEq supplement Multivitamin Levothyroxine 75 mcg Labs at discharge: WBC: 6.6, H/H: 18/52.5, platelet count: 226 Sodium: 136, potassium: 3.9, BUN: 28, creatinine: 1.15 Imaging: X-ray: Extensive bilateral perihilar interstitial opacities with cardiomegaly, likely representing heart failure. Stable cardiac device positioning. Echo: EF: 60-65%, moderate concentric hypertrophy, trace tricuspid valve regurgitation Trace mitral valve regurgitation Discharge medications can be found above patient is discharged to [facility] with recommendations return on a paper and that has been faxed. *Problems/Diagnosis: (1) Acute hypoxic respiratory failure Status: Acute (2) CHF exacerbation Status: Acute (3) Atrial fibrillation Total Time Spent on D/C: > 30 Minutes Date of Service: May 25, 2025 Billing Provider: TIM MAHONEY MD Common Visit Codes: [id number] DISCH DAY >30min ADRIANA NOGUERA, RES May 25, 2025 18:05 TIM MAHONEY MD May 26, 2025 07:11
[2025-05-25] MEDS ORDERED: warfarin 10mg tablet PO ONE (21:00)
== END 2025-05-25 17:35 | DRG 291 ==
LOC: ER 15:30 → ED HOLD 19:29 → EDBEDREQ 05-20 03:17 → PCU 3S 05-20 09:05
PROVIDERS: ADMIT Internal Medicine; ATTEND Internal Medicine
PROC: 4B02XSZ Measurement of Cardiac Pacemaker, External Approach (ICD-10-PCS; principal; 2025-05-22)
DX: I11.0 Hypertensive heart disease with heart failure (principal); I50.33 Acute on chronic diastolic (congestive) heart failure; J96.01 Acute respiratory failure with hypoxia; E87.3 Alkalosis; Z68.43 Body mass index [BMI] 50.0-59.9, adult; I27.20 Pulmonary hypertension, unspecified; E11.9 Type 2 diabetes mellitus without complications; E03.9 Hypothyroidism, unspecified; I49.5 Sick sinus syndrome; E66.01 Morbid (severe) obesity due to excess calories; E78.00 Pure hypercholesterolemia, unspecified; E87.5 Hyperkalemia; E78.5 Hyperlipidemia, unspecified; G47.30 Sleep apnea, unspecified; I48.91 Unspecified atrial fibrillation; E87.6 Hypokalemia; Z95.0 Presence of cardiac pacemaker
CPT/HCPCS: 36415; 71045; 80048; 80061; 80069; 82948; 83036; 83735; 83880; 84484; 85025; 85610; 87081; 93005; 93306; 94760; 96374; 97161; 97530; 99285; A4615; A6250; G0378; J1815; J1938